=== PATIENT | male | born 1950 | race Caucasian/White ===

== ENCOUNTER 2016-11-21 05:13 | Inpatient (IN) | payer MEDICARE, BC ==
[2016-11-21] MEDS ORDERED: SODIUM CHLORIDE 0.9% 1,000 ML IV ONE (05:38)
[2016-11-21] MEDS ORDERED: ATENOLOL 25 MG TAB PO STA (05:38)
--- NOTE | 2016-11-21 05:42 | ED ---
Skin/Abscess/FB HPI - General Chief complaint: Skin/Abscess/Foreign Body Stated complaint: Infection Time Seen by Provider: 11/21/16 05:22 Source: patient, family Mode of arrival: ambulatory Limitations: no limitations - History of Present Illness Initial comments: This is a 66-year-old male with a history of leukemia in remission the last couple of months who presents emergency department for left-sided facial pain. The patient had a carcinoma removed from the left side of his face just anterior to his left ear. He states this was done 2 days ago. He states that he took the bandage off last night and it looked okay however had increasing pain and swelling throughout the day and is concerned about infection. He denies any fevers or chills. He does admit to little bit a cough. He also states he did not take his atenolol last night because he knew he was given come in to the emergency department. He denies any abdominal pain, nausea, vomiting, or diarrhea. No dysuria or hematuria. No other complaints. - Related Data Home Medications Medication Instructions Recorded Confirmed Atenolol 25 mg PO BID 06/20/14 11/21/16 OLANZapine [ZyPREXA] 5 mg PO HS 11/27/15 11/21/16 Multivitamins, Thera [Multivitamin] 1 tab PO DAILY 08/17/16 11/21/16 Allergies Allergy/AdvReac Type Severity Reaction Status Date / Time chocolate flavor AdvReac Swelling Verified 11/21/16 05:21 Review of Systems ROS Statement: Those systems with pertinent positive or pertinent negative responses have been documented in the HPI. ROS Other: All systems not noted in ROS Statement are negative. Past Medical History Past Medical History: Cancer, GERD/Reflux, Hyperlipidemia, Hypertension, Neurologic Disorder, Osteoarthritis (OA), Pneumonia Additional Past Medical History / Comment(s): sepsis 2ndary to [facility] infection/cellulitis and pancytopenia. STATES HX OF COMA AFTER HE WAS GIVEN LSD & STREET DRUGS YEARS AGO AND HAS BEEN UNDER DR CRUZ'S CARE SINCE., ,Hx. of R ear TINNITUS, TACHYCARDIA, ACUTE MYELOBLASTIC LEUKEMIA , MDS (MYELODYSPLASTIC SYNDROME) ,HAS BEEN RECEIVING CHEMOTHERAPY 4TH ROUND WAS 09-21-16 TO 09-25-16, chronic anemia, HX OF MULTIPLE TRANSFUSIONS (OVER 180), GOUT, SCOLIOSIS, BRUISES ON ARMS FROM IV'S AND BLOOD DRAWS., PNEUMONIA (MAY 2015). History of Any Multi-Drug Resistant Organisms: None Reported Past Surgical History: Back Surgery, Orthopedic Surgery, Tonsillectomy Additional Past Surgical History / Comment(s): 2000- metal rods in left forearm , , colonoscopy and EGD., MEDIPORT, [facility]MA.PICC LINE LT UPPER LINE Past Anesthesia/Blood Transfusion Reactions: No Reported Reaction, Blood Transfusion Reaction Additional Past Anesthesia/Blood Transfusion Reaction / Comment(s): OCTOBER 2014 -WAS GIVEN A- AND PT IS A+-PT HAD PETECHIAE AND RASH LIKE SORES, PT STATES SAME REACTION IN NOVEMBER 2015. Past Psychological History: Bipolar, Depression Additional Psychological History / Comment(s): He denies schizophrenia stating that behavior was a side effect of the respiradol he was taking. He states he has bipolar II. Smoking Status: Former smoker Past Alcohol Use History: None Reported Additional Past Alcohol Use History / Comment(s): STARTED SMOKING AT AGE 21 QUIT AGE 31 SMOKED LESS THAN 1 PPD. Past Drug Use History: None Reported - Past Family History Father Family Medical History: Cancer Additional Family Medical History / Comment(s): Leukemia, bladder cancer. Mother Family Medical History: Blood Disorder, Dementia Additional Family Medical History / Comment(s): ANEMIA General Exam - General Exam Comments Initial Comments: Constitutional: Awake alert Appears comfortable Head: Normocephalic atraumatic , there is a 4 cm incision to the left face just anterior to the left ear, there is mild erythema and inflammation surrounding this. No pearly and drainage. No fluctuance or induration. Eyes: no conjunctival injection No scleral icterus EOMI Neck: No JVD Supple Heart: Regular rate rhythm normal S1-S2 no murmurs Lungs: Clear to auscultation bilaterally No wheezing No rales Abdomen: Soft nondistended nontender Extremities: Non edematous DP pulses intact Radial pulses intact Neuro: A&Ox3 No focal neurologic deficits Psych: Appropriate mood and affect Limitations: no limitations Course Vital Signs 11/21/16 11/21/16 05:15 06:06 Temperature 97.6 F Pulse Rate 144 H 116 H Respiratory 20 16 Rate Blood Pressure 145/64 140/79 O2 Sat by Pulse 100 98 Oximetry - Reevaluation(s) Reevaluation #1: 11/21/16 05:42 EKG is showing sinus tachycardia with a rate of 118. No ST segment changes or T -wave inversions. QTC is 440. Other intervals are normal. No ectopy. Medical Decision Making - Medical Decision Making The patient is currently comfortable at bedside. Heart rate has improved to the low 100s. Blood work significant for anemia and thrombus cytopenia. The patient was typed and screened and will keep 2 units of PRBCs and also one pole of packed platelets. I treated his left facial wound with clindamycin. I spoke with Dr. Landers who accepts the admission. - Lab Data Result diagrams: 11/21/16 06:00 11/21/16 06:00 Lab Results 11/21/16 11/21/16 Range/Units 06:00 06:00 WBC 1.1 L* (3.8-10.6) k/uL RBC 1.82 L (4.30-5.90) m/uL Hgb 6.8 L* (13.0-17.5) gm/dL Hct 20.2 L (39.0-53.0) % MCV 111.5 H D (80.0-100.0) fL MCH 37.5 H (25.0-35.0) pg MCHC 33.6 (31.0-37.0) g/dL RDW 24.5 H (11.5-15.5) % Plt Count 8 L* (150-450) k/uL Sodium 141 (137-145) mmol/L Potassium 4.3 (3.5-5.1) mmol/L Chloride 104 (98-107) mmol/L Carbon Dioxide 27 (22-30) mmol/L Anion Gap 10 mmol/L BUN 14 (9-20) mg/dL Creatinine 0.63 L (0.66-1.25) mg/dL Est GFR (MDRD) Af Amer >60 (>60 ml/min/1.73 sqM) Est GFR (MDRD) Non-Af >60 (>60 ml/min/1.73 sqM) Glucose 143 H (74-99) mg/dL Calcium 9.3 (8.4-10.2) mg/dL Total Bilirubin 1.0 (0.2-1.3) mg/dL AST 35 (17-59) U/L ALT 65 (21-72) U/L Alkaline Phosphatase 64 (38-126) U/L Total Protein 6.3 (6.3-8.2) g/dL Albumin 3.4 L (3.5-5.0) g/dL Disposition Clinical Impression: Anemia, Thrombocytopenia, Wound infection Disposition: ADMITTED IP TO THIS HOSP Condition: Stable
[2016-11-21 06:24] LABS: Anisocytosis Marked; Aty Lym Flag Slight; CH 37.2; CHCM 33.5; HCT 20.2 % (39.0-53.0); HDW 3.34; Large Platelets Flag Moderate; MCH 37.5 pg (25.0-35.0); MCHC 33.6 g/dL (31.0-37.0); Macrocytosis Marked; RBC 1.82 m/uL (4.30-5.90); RDW 24.5 % (11.5-15.5); WBC (Perox) 1.11
[2016-11-21 06:27] LABS: HGB 6.8 gm/dL (13.0-17.5); WBC 1.1 k/uL (3.8-10.6)
[2016-11-21 06:28] LABS: MCV 111.5 fL (80.0-100.0)
[2016-11-21 06:31] LABS: ALT 65 U/L (21-72); AST 35 U/L (17-59); Alkaline Phosphatase 64 U/L (38-126); Anion Gap 10 mmol/L; Blood Urea Nitrogen 14 mg/dL (9-20); Calcium 9.3 mg/dL (8.4-10.2); Carbon Dioxide 27 mmol/L (22-30); Chloride 104 mmol/L (98-107); Glucose 143 mg/dL (74-99); Non-African American GFR(MDRD) >60 (>60 ml/min/1.73 sqM); Potassium 4.3 mmol/L (3.5-5.1); Sodium 141 mmol/L (137-145); Total Protein 6.3 g/dL (6.3-8.2)
[2016-11-21] MEDS ORDERED: CLINDAMYCIN 150 MG CAP PO STA (06:50)
[2016-11-21] MEDS ORDERED: NALOXONE 0.4 MG/ML 1 ML VIAL IV PRN (07:00)
--- NOTE | 2016-11-21 07:15 | XR ---
EXAMINATION TYPE: XR chest 2V DATE OF EXAM: 11/21/2016 7:00 AM COMPARISON: September 30, 2016 HISTORY: infection l. side of face-pt. states he has leukemia TECHNIQUE: Frontal and lateral views of the chest are obtained. FINDINGS: There is evidence of patchy opacity in the right suprahilar area in the right upper lobe of lung and may represent chronic scarring or atelectasis. Underlying infiltrate or endobronchial lesion cannot b e excluded.. Chronic interstitial lung changes are suggested bilaterally. No pneumothorax or pleural effusion is n oted. The cardiac silhouette size is within normal limits. Moderate degenerative changes are present in the thoracic spine.. IMPRESSION: 1. There is patchy scarring or atelectasis in the right upper lobe of lung. Underlying infiltrate can not be excluded. A CT scan of chest may be helpful to exclude endobronchial lesion if clinically karen cated. 2. Chronic lung changes.
[2016-11-21 07:43] LABS: Add Differential Manual Differential
[2016-11-21 07:46] LABS: Nucleated Red Blood Cells 0 /100 WBC (0-0); Polychromasia Present; Total Cells Counted 100
[2016-11-21 07:47] LABS: Ovalocytes Present
[2016-11-21 09:31] VITALS: BMI 28.1
--- NOTE | 2016-11-21 13:23 | P.HPIM ---
History of Present Illness Chief Complaint: Swelling of the neck This is 66-year-old gentleman with past medical history significant for underlying AML who presented to the emergency room with worsening swelling of the left neck and redness around recent incision in the left frontal area. Patient had the squamous cell carcinoma diagnosed recently. He was evaluated by dermatology and underwent excision with placement of sutures on Wednesday. Patient noted that there is some worsening redness around the area with swelling and some pain. He also noted a lump in his neck. He presented to the emergency room for further evaluation. He was noted to be pancytopenic with critically low platelet and hemoglobin levels. Patient was admitted to the hospital for further evaluation. He is doing fairly well other than the discomfort in his neck. He is transfusion dependent. He was apparently receiving chemotherapy at some point that was stopped. He is unclear what the plan of care for his AML that possibly planning for bone marrow transplant in the future. Review of Systems Review of system: 14 points review of systems were obtained and were negative except to what were mentioned in the HPI. Past Medical History Past Medical History: Cancer, GERD/Reflux, Hyperlipidemia, Hypertension, Neurologic Disorder, Osteoarthritis (OA), Pneumonia Additional Past Medical History / Comment(s): STATES HX OF COMA AFTER HE WAS GIVEN LSD & STREET DRUGS YEARS AGO AND HAS BEEN UNDER DR CRUZ'S CARE SINCE., , Hx. of R ear TINNITUS, TACHYCARDIA, ACUTE MYELOBLASTIC LEUKEMIA , MDS ( MYELODYSPLASTIC SYNDROME) ,HAS BEEN RECEIVING CHEMOTHERAPY 4TH ROUND WAS TO 09-25-16, chronic anemia, HX OF MULTIPLE TRANSFUSIONS (OVER 180), GOUT, SCOLIOSIS, BRUISES ON ARMS FROM IV'S AND BLOOD DRAWS., PNEUMONIA (MAY 2015). cancer removed on left side of face 11/18/2016 History of Any Multi-Drug Resistant Organisms: None Reported Past Surgical History: Back Surgery, Orthopedic Surgery, Tonsillectomy Additional Past Surgical History / Comment(s): 2000- metal rods in left forearm , , colonoscopy and EGD., MEDICUONG, [facility].PICC LINE LT UPPER LINE Past Anesthesia/Blood Transfusion Reactions: No Reported Reaction, Blood Transfusion Reaction Additional Past Anesthesia/Blood Transfusion Reaction / Comment(s): OCTOBER 2014 -WAS GIVEN A- AND PT IS A+-PT HAD PETECHIAE AND RASH LIKE SORES, PT STATES SAME REACTION IN NOVEMBER 2015. Past Psychological History: Bipolar, Depression Additional Psychological History / Comment(s): He denies schizophrenia stating that behavior was a side effect of the respiradol he was taking. He states he has bipolar II. Smoking Status: Former smoker Past Alcohol Use History: None Reported Additional Past Alcohol Use History / Comment(s): STARTED SMOKING AT AGE 21 QUIT AGE 31 SMOKED LESS THAN 1 PPD. Past Drug Use History: None Reported - Past Family History Father Family Medical History: Cancer Additional Family Medical History / Comment(s): Leukemia, bladder cancer. Mother Family Medical History: Blood Disorder, Dementia Additional Family Medical History / Comment(s): ANEMIA Medications and Allergies Home Medications Medication Instructions Recorded Confirmed Type Atenolol 25 mg PO BID 06/20/14 11/21/16 History OLANZapine [ZyPREXA] 5 mg PO HS 11/27/15 11/21/16 History Multivitamins, Thera [Multivitamin] 1 tab PO DAILY 08/17/16 11/21/16 History Dronabinol [Marinol] 2.5 mg PO HS 11/21/16 11/21/16 History Allergies Allergy/AdvReac Type Severity Reaction Status Date / Time chocolate flavor AdvReac Swelling Verified 11/21/16 11:22 Physical Exam Vitals: Vital Signs Temp Pulse Pulse Resp BP BP Pulse Ox 11/21/16 08:17 98 F 103 H 16 118/55 98 11/21/16 07:48 98.5 F 11/21/16 07:10 99 18 132/61 100 Intake and Output 11/20/16 11/21/16 11/21/16 22:59 06:59 14:59 Other: Weight 88.904 kg Patient Weight 11/22/16 06:59 Weight 88.904 kg General: The patient is awake and alert, in no distress, and does not appear acutely ill. Eye: extra-ocular movements are intact; there is normal conjunctiva bilaterally. There is approximately 2 cm linear incision sutured with erythema surrounding the sutures in the lateral aspect of the left eye toward the temporal area Neck: There is noted cervical lymphadenopathy in the anterior neck below the mandible on the left Cardiovascular: Normal S1-S2, no S3-S4, no murmurs. Respiratory: Lungs clear to auscultation bilaterally with no wheezes rhonchi or rales. Gastrointestinal: Abdomen is soft, nontender, nondistended, with no organomegaly. . Musculoskeletal: Normal ROM, no tenderness, There is no pedal edema. Neurological: There are no obvious motor or sensory deficits. Speech is normal. Skin: Skin is warm and dry and no rashes or lesions are noted. Results CBC & Chem 7: 11/21/16 06:00 11/21/16 06:00 Thrombosis Risk Factor Assmnt - Choose All That Apply Any of the Below Risk Factors Present?: Yes Other Risk Factors: Yes Each Risk Factor Represents 2 Points: Age 61-74 years Other congenital or acquired thrombophilia - If yes, enter type in comment: No Thrombosis Risk Factor Assessment Total Risk Factor Score: 2 Thrombosis Risk Factor Assessment Level: Low Risk Assessment and Plan Plan: 1. Cellulitis surrounding surgical excision sites 2. Left cervical lymphadenopathy 3. Underlying AML transfusion dependent 4. Pancytopenia secondary to #3 Patient would be started on IV cefazolin and monitor closely. 2 units of PRBC and 1 unit of platelets would be transfused. Consult for hematology requested given profound pancytopenia and patient being immunocompromised. We will monitor closely. Repeat lab work in the morning.
[2016-11-21] MEDS: ceFAZolin 1,000 MG in DEXTROSE/WATER 1 50ML.BAG IVPB SCH (17:06)
[2016-11-21] MEDS: OLANZapine 5 MG TAB PO SCH (21:14)
[2016-11-21] MEDS: DRONABINOL 2.5 MG CAP PO SCH (21:14)
[2016-11-21] MEDS: ATENOLOL 25 MG TAB PO SCH (21:15)
[2016-11-22] MEDS: ceFAZolin 1,000 MG in DEXTROSE/WATER 1 50ML.BAG IVPB SCH ×4 (01:12→23:23)
[2016-11-22 07:34] LABS: Anisocytosis Marked; CHCM 34.3; HCT 25.3 % (39.0-53.0); HDW 3.65; HGB 8.2 gm/dL (13.0-17.5); MCH 34.6 pg (25.0-35.0); MCHC 32.6 g/dL (31.0-37.0); Macrocytosis Marked; Mean Platelet Volume 9.9; Poikilocytosis Slight; RBC 2.38 m/uL (4.30-5.90); RDW 24.7 % (11.5-15.5); WBC (Perox) 1.49
[2016-11-22 07:38] LABS: WBC 1.4 k/uL (3.8-10.6)
[2016-11-22 07:39] LABS: MCV 106.4 fL (80.0-100.0)
[2016-11-22 08:00] LABS: Anion Gap 8 mmol/L; Blood Urea Nitrogen 13 mg/dL (9-20); Calcium 9.1 mg/dL (8.4-10.2); Carbon Dioxide 28 mmol/L (22-30); Chloride 106 mmol/L (98-107); Glucose 108 mg/dL (74-99); Non-African American GFR(MDRD) >60 (>60 ml/min/1.73 sqM); Potassium 4.6 mmol/L (3.5-5.1); Sodium 142 mmol/L (137-145)
[2016-11-22] MEDS: ATENOLOL 25 MG TAB PO SCH ×2 (08:54→19:35)
[2016-11-22 09:34] LABS: Add Differential Manual Differential
[2016-11-22 09:36] LABS: Nucleated Red Blood Cells 0 /100 WBC (0-0); Total Cells Counted 100
[2016-11-22 09:37] LABS: Ovalocytes Present; Polychromasia Present
--- NOTE | 2016-11-22 13:44 | P.PN ---
Subjective Patient is doing a lot better today. He said that he feels back to his normal self. Objective - Vital Signs Vital signs: Vital Signs Temp 97.1 F L 11/22/16 07:00 Pulse 79 11/22/16 08:00 Resp 20 11/22/16 08:00 BP 121/63 11/22/16 07:00 Pulse Ox 98 11/22/16 07:00 Intake & Output 11/21/16 11/22/16 11/22/16 18:59 06:59 18:59 Intake Total 0 2086 Balance 0 6 Weight 88.904 kg Intake: IV 670 ceFAZolin 1,000 mg In 50 Dextrose/Water 1 50ml.bag @ 100 mls/hr IVPB Q8HR [facility] Rx#:[id number] prbcs 620 Oral 500 Blood Product 0 916 Platelet Irr Pheresis 2 0 296 Acda Unit [id number] Rc Irr As1 Unit 310 [id number] Rc Irr As1 Unit 310 [id number] Other: # Voids 2 2 - Exam General: The patient is awake and alert, in no distress Eye: there is normal conjunctiva bilaterally. Neck: The neck is supple, there is no JVD. Cardiovascular: Normal S1-S2, no S3-S4, no murmurs. Respiratory: Lungs clear to auscultation bilaterally Gastrointestinal: Abdomen is soft, nontender Musculoskeletal: There is no pedal edema. Neurological:. Speech is normal. Skin: Skin is warm and dry - Labs CBC & Chem 7: 11/22/16 06:25 11/22/16 06:25 Labs: Abnormal Lab Results - Last 24 Hours (Table) 11/22/16 11/22/16 Range/Units 06:25 06:25 WBC 1.4 L* (3.8-10.6) k/uL RBC 2.38 L (4.30-5.90) m/uL Hgb 8.2 L (13.0-17.5) gm/dL Hct 25.3 L (39.0-53.0) % MCV 106.4 H D (80.0-100.0) fL RDW 24.7 H (11.5-15.5) % Plt Count 21 L* D (150-450) k/uL Neutrophils # (Manual) 0.5 L (1.3-7.7) k/uL Lymphocytes # (Manual) 0.7 L (1.0-4.8) k/uL Creatinine 0.62 L (0.66-1.25) mg/dL Glucose 108 H (74-99) mg/dL Assessment and Plan Plan: 1. Cellulitis surrounding surgical excision sites 2. Left cervical lymphadenopathy: Improved significantly compared to yesterday 3. Underlying AML transfusion dependent 4. Pancytopenia secondary to #3 status post 2 units of PRBC and 1 unit of platelet transfusion Patient is improving significantly. We will continue IV antibiotic for 1 more day. He was seen and evaluated by hematology and plan is to follow-up in the office. May change antibiotic to Keflex tomorrow We will monitor closely. Repeat lab work in the morning. Plan to discharge home tomorrow.
[2016-11-22] MEDS: DRONABINOL 2.5 MG CAP PO SCH (19:34)
[2016-11-22] MEDS: OLANZapine 5 MG TAB PO SCH (19:34)
[2016-11-23 07:11] LABS: Anisocytosis Moderate; Aty Lym Flag Slight; CH 35.6; CHCM 33.7; HCT 25.2 % (39.0-53.0); HDW 3.42; HGB 8.5 gm/dL (13.0-17.5); Large Platelets Flag Slight; MCH 35.8 pg (25.0-35.0); MCHC 33.6 g/dL (31.0-37.0); MCV 106.6 fL (80.0-100.0); Macrocytosis Marked; Mean Platelet Volume 10.2; Poikilocytosis Slight; RBC 2.36 m/uL (4.30-5.90); RDW 23.7 % (11.5-15.5); WBC (Perox) 1.26
[2016-11-23 07:16] LABS: WBC 1.1 k/uL (3.8-10.6)
[2016-11-23 07:24] LABS: Anion Gap 8 mmol/L; Blood Urea Nitrogen 16 mg/dL (9-20); Calcium 9.1 mg/dL (8.4-10.2); Carbon Dioxide 29 mmol/L (22-30); Chloride 104 mmol/L (98-107); Glucose 113 mg/dL (74-99); Non-African American GFR(MDRD) >60 (>60 ml/min/1.73 sqM); Sodium 141 mmol/L (137-145)
[2016-11-23 08:34] LABS: Add Differential Manual Differential
[2016-11-23 08:42] LABS: Nucleated Red Blood Cells 1 /100 WBC (0-0)
[2016-11-23 08:43] LABS: Total Cells Counted 100
[2016-11-23 08:44] LABS: Manual Review Performed
[2016-11-23] MEDS: ceFAZolin 1,000 MG in DEXTROSE/WATER 1 50ML.BAG IVPB SCH ×2 (09:27→17:32)
[2016-11-23] MEDS: ATENOLOL 25 MG TAB PO SCH ×2 (09:28→20:42)
[2016-11-23] MEDS ORDERED: IV VANCOMYCIN PER PHARMACY 1 EACH MISC MISCELLANE PRN (11:10)
--- NOTE | 2016-11-23 11:32 | P.PN ---
Subjective Patient with cellulitis of the left temporal incision area. Patient still having some redness and swelling. Pain is controlled. Denies any chest pain, shortness of breath, nausea or vomiting. Denies a bowel movement changes or urinary symptoms Objective - Vital Signs Vital signs: Vital Signs Temp 99.0 F 11/23/16 07:00 Pulse 80 11/23/16 08:00 Resp 16 11/23/16 08:00 BP 127/61 11/23/16 07:00 Pulse Ox 94 L 11/23/16 07:00 Intake & Output 11/22/16 11/23/16 11/23/16 18:59 06:59 18:59 Intake Total 1950 Balance 1950 Intake: IV 50 ceFAZolin 1,000 mg In 50 Dextrose/Water 1 50ml.bag @ 100 mls/hr IVPB Q8HR [facility] Rx#:[id number] Oral 1900 Other: # Voids 2 1 - Exam Head normocephalic. Left temporal incision site is swollen, firm, red. no drainage. there is swellling on the left neck Neck supple Lungs clear to auscultation bilaterally no wheezing or crackles Heart regular rate and rhythm S1-S2, no rub or gallop Abdomen is soft nontender nondistended positive bowel sounds no hepatosplenomegaly Extremities no edema Neuro alert and orientated to 3 - Labs CBC & Chem 7: 11/23/16 06:30 11/23/16 06:30 Labs: Abnormal Lab Results - Last 24 Hours (Table) 11/23/16 11/23/16 Range/Units 06:30 06:30 WBC 1.1 L* (3.8-10.6) k/uL RBC 2.36 L (4.30-5.90) m/uL Hgb 8.5 L (13.0-17.5) gm/dL Hct 25.2 L (39.0-53.0) % MCV 106.6 H (80.0-100.0) fL MCH 35.8 H (25.0-35.0) pg RDW 23.7 H (11.5-15.5) % Plt Count 17 L* (150-450) k/uL Neutrophils # (Manual) 0.4 L (1.3-7.7) k/uL Lymphocytes # (Manual) 0.6 L (1.0-4.8) k/uL Nucleated RBCs 1 H (0-0) /100 WBC Creatinine 0.62 L (0.66-1.25) mg/dL Glucose 113 H (74-99) mg/dL Assessment and Plan Plan: 1. Cellulitis surrounding surgical excision site on the left temporal area. No Improvement. Consult infectious disease. Add IV vancomycin. Blood culture remains negative 2. Left cervical lymphadenopathy: Still present. Continue to monitor 3. Underlying AML transfusion dependent 4. Pancytopenia secondary to #3 status post 2 units of PRBC and 1 unit of platelet transfusion 5. Anemia of chronic disease secondary to AML. Patient did require blood transfusion. 6. 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 Soto
[2016-11-23] MEDS ORDERED: VANCOMYCIN 1,500 MG in SODIUM CHLORIDE 0.9% 250 ML IVPB ONE (12:00)
--- NOTE | 2016-11-23 18:42 | P.CONS ---
History of Present Illness - Reason for Consult Consult date: 11/23/16 - Chief Complaint Pain and swelling to the left side of the face - History of Present Illness Pleasant 66-year-old male well known to the ID service because of his history of myelodysplastic syndrome with excessive blasts diagnosed in 2013. Was evaluated both [facility] is worse locally. Initially refused treatment and was transfusion dependent. However in 2016 he went under the care of Dr. Garcia and agree to treatment with Decagon. The patient relates that he has completed his course of therapy and was doing well. He is still requiring some red cell transfusions. But had some more recent stability. He developed a lesion on the left side of his face. It was positive for squamous cell carcinoma and underwent a excisional removal of the mass. There were started developed increasing amounts of swelling to the site. Redness that traversed around his ear and into his neck with some tender swelling. Because of this he presented to the emergency center with a cellulitis to the site. Antibiotic therapy was begun. Infectious disease consultation was requested. It is on the patient relates he is feeling slightly better. He is not having high-grade fever chills or rigors or sweats. He did receive platelets and 2 packed red cells at admission. He does feel stronger. He relates is actually feeling somewhat better at this time and feels ageless. Review of Systems HEENT:Denies headache or acute visual change. Denies sinus or mouth discomforts. Denies neck stiffness or pain. Denies significant oral cavity pain. Denies difficulty on swallowing. As per the HPI does have the pain onto the left rastafari area that goes of the posterior auricular region Lungs: Denies significant shortness of breath, cough, sputum production, or hemoptysis. Cardiovascular: Denies significant shortness of breath, chest pain, chest wall pain, orthopnea, dyspnea on exertion, syncope Gastrointestinal:Denies nausea, vomiting, diarrhea, constipation, hematemesis, melena, hematochezia. No no significant change of bowel habit noticed. Musculoskeletal: denies significant myalgias or arthralgias. No new joint swelling. Denies new back pain. Skin: Denies new rash or lesions. No new ulcers or wounds are related.. Neuro: Denies headache or visual change. Denies any new onset weakness or difficulty with ambulation. Denies falls or seizures. Psychiatric:Denies anxiety or depression. Endocrine: Chronic significant fatigue improves his transfusion has lost 50 pounds in the last year. Past Medical History Past Medical History: Cancer, GERD/Reflux, Hyperlipidemia, Hypertension, Neurologic Disorder, Osteoarthritis (OA), Pneumonia Additional Past Medical History / Comment(s): STATES HX OF COMA AFTER HE WAS GIVEN LSD & STREET DRUGS YEARS AGO AND HAS BEEN UNDER DR CRUZ'S CARE SINCE., , Hx. of R ear TINNITUS, TACHYCARDIA, ACUTE MYELOBLASTIC LEUKEMIA , MDS ( MYELODYSPLASTIC SYNDROME) ,HAS BEEN RECEIVING CHEMOTHERAPY 4TH ROUND WAS TO 09-25-16, chronic anemia, HX OF MULTIPLE TRANSFUSIONS (OVER 180), GOUT, SCOLIOSIS, BRUISES ON ARMS FROM IV'S AND BLOOD DRAWS., PNEUMONIA (MAY 2015). cancer removed on left side of face 11/18/2016 History of Any Multi-Drug Resistant Organisms: None Reported Past Surgical History: Back Surgery, Orthopedic Surgery, Tonsillectomy Additional Past Surgical History / Comment(s): 2000- metal rods in left forearm , , colonoscopy and EGD., MEDIPORT, BMA.PICC LINE LT UPPER LINE Past Anesthesia/Blood Transfusion Reactions: No Reported Reaction, Blood Transfusion Reaction Additional Past Anesthesia/Blood Transfusion Reaction / Comm: OCTOBER 2014-WAS GIVEN A- AND PT IS A+-PT HAD PETECHIAE AND RASH LIKE SORES, PT STATES SAME REACTION IN NOVEMBER 2015. Past Psychological History: Bipolar, Depression Additional Psychological History / Comment(s): He denies schizophrenia stating that behavior was a side effect of the respiradol he was taking. He states he has bipolar II. Smoking Status: Former smoker Past Alcohol Use History: None Reported Additional Past Alcohol Use History / Comment(s): STARTED SMOKING AT AGE 21 QUIT AGE 31 SMOKED LESS THAN 1 PPD. Past Drug Use History: None Reported - Past Family History Father Family Medical History: Cancer Additional Family Medical History / Comment(s): Leukemia, bladder cancer. Mother Family Medical History: Blood Disorder, Dementia Additional Family Medical History / Comment(s): ANEMIA Medications and Allergies Home Medications and Allergies Comment(s): Current Medications Atenolol (Tenormin) 25 mg PO BID [facility] Last Admin: 11/23/16 09:28 Dose: 25 mg Dronabinol (Marinol) 2.5 mg PO HS [facility] Last Admin: 11/22/16 19:34 Dose: 2.5 mg Cefazolin Sodium/Dextrose 1, (000 mg/ IV Solution) 50 mls @ 100 mls/hr IVPB Q8HR [facility] Last Admin: 11/23/16 17:32 Dose: 100 mls/hr Vancomycin HCl 1,500 mg/ (Sodium Chloride) 250 mls @ 125 mls/hr IVPB BID [facility] Naloxone HCl (Narcan) 0.2 mg IV Q2M PRN PRN Reason: Opioid Reversal Olanzapine (Zyprexa) 5 mg PO [facility] Last Admin: 11/22/16 19:34 Dose: 5 mg Home Medications Medication Instructions Recorded Confirmed Type Atenolol 25 mg PO BID 06/20/14 11/21/16 History OLANZapine [ZyPREXA] 5 mg PO HS 11/27/15 11/21/16 History Multivitamins, Thera [Multivitamin] 1 tab PO DAILY 08/17/16 11/21/16 History Dronabinol [Marinol] 2.5 mg PO HS 11/21/16 11/21/16 History Allergies Allergy/AdvReac Type Severity Reaction Status Date / Time chocolate flavor AdvReac Swelling Verified 11/21/16 11:22 Physical Exam Vitals: Vital Signs Temp Pulse Resp BP Pulse Ox 11/23/16 16:00 83 16 11/23/16 14:30 98.2 F 83 16 129/58 92 L 11/23/16 08:00 80 16 11/23/16 07:00 99.0 F 80 16 127/61 94 L 11/22/16 23:15 16 11/22/16 22:09 98.6 F 78 16 118/59 96 Intake and Output 11/23/16 11/23/16 11/23/16 06:59 14:59 22:59 Intake Total 750 Balance 750 Intake: IV 50 ceFAZolin 1,000 mg In 50 Dextrose/Water 1 50ml.bag @ 100 mls/hr IVPB Q8HR [facility] Rx#:[id number] Oral 700 Other: # Voids 1 Weight 88.904 kg Patient Weight 11/24/16 06:59 Weight 88.904 kg HEENT: Anicteric conjunctiva are pink and moist nasal mucosa grossly intact without significant lesions, there is no thrush. The left temporal area shows evidence of the recent biopsy site. Suture line is intact. There is some generalized swelling and mild tenderness of the area. There is some surrounding erythema. There is evidence of some posterior auricular adenopathy that is mildly tender. There is not a significant amount of erythema and this area. Neck: The neck is supple without significant thyromegaly. Lungs: Good bilateral air entry without significant crackles or wheezing. There is no significant bronchial sounds. There is no egophony or dullness. Heart: Regular rate and rhythm with an audible S1-S2, no S3 no S4. There is no significant murmur click or rub, PMI was nondisplaced. Abdomen: Positive bowel sounds soft and nontender without palpable masses or organomegaly. There was no guarding or rebound. Extremities: The upper extremities have excellent pulses they are symmetric, no significant petechiae or telangiectasia. No splinter hemorrhages were noted. The lower extremities are free from significant edema. The peripheral pulses were 2+ and symmetric. Neuro: Awake alert oriented to person place and time. There are no acute new gross focal sensory motor deficits. Results CBC & Chem 7: 11/23/16 06:30 11/23/16 06:30 Labs: Abnormal Lab Results - Last 24 Hours (Table) 11/23/16 11/23/16 Range/Units 06:30 06:30 WBC 1.1 L* (3.8-10.6) k/uL RBC 2.36 L (4.30-5.90) m/uL Hgb 8.5 L (13.0-17.5) gm/dL Hct 25.2 L (39.0-53.0) % MCV 106.6 H (80.0-100.0) fL MCH 35.8 H (25.0-35.0) pg RDW 23.7 H (11.5-15.5) % Plt Count 17 L* (150-450) k/uL Neutrophils # (Manual) 0.4 L (1.3-7.7) k/uL Lymphocytes # (Manual) 0.6 L (1.0-4.8) k/uL Nucleated RBCs 1 H (0-0) /100 WBC Creatinine 0.62 L (0.66-1.25) mg/dL Glucose 113 H (74-99) mg/dL Laboratory Results WBC 1.1 k/uL (3.8-10.6) L* 11/23/16 06:30 RBC 2.36 m/uL (4.30-5.90) L 11/23/16 06:30 Hgb 8.5 gm/dL (13.0-17.5) L 11/23/16 06:30 Hct 25.2 % (39.0-53.0) L 11/23/16 06:30 MCV 106.6 fL (80.0-100.0) H 11/23/16 06:30 MCH 35.8 pg (25.0-35.0) H 11/23/16 06:30 MCHC 33.6 g/dL (31.0-37.0) 11/23/16 06:30 RDW 23.7 % (11.5-15.5) H 11/23/16 06:30 Plt Count 17 k/uL (150-450) L* 11/23/16 06:30 Neutrophils % (Manual) 36.0 % 11/23/16 06:30 Band Neutrophils % 1.0 % 11/23/16 06:30 Lymphocytes % (Manual) 55.0 % 11/23/16 06:30 Monocytes % (Manual) 1.0 % 11/23/16 06:30 Eosinophils % (Manual) 7.0 % 11/23/16 06:30 Neutrophils # (Manual) 0.4 k/uL (1.3-7.7) L 11/23/16 06:30 Lymphocytes # (Manual) 0.6 k/uL (1.0-4.8) L 11/23/16 06:30 Monocytes # (Manual) 0.0 k/uL (0-1.0) 11/23/16 06:30 Eosinophils # (Manual) 0.1 k/uL (0-0.7) 11/23/16 06:30 Nucleated RBCs 1 /100 WBC (0-0) H 11/23/16 06:30 Manual Slide Review Performed 11/23/16 06:30 Polychromasia Present 11/22/16 06:25 Poikilocytosis Slight 11/23/16 06:30 Poikilocytosis (manual Present 11/22/16 06:25 Anisocytosis Moderate 11/23/16 06:30 Macrocytosis Marked 11/23/16 06:30 Ovalocytes Present 11/22/16 06:25 Sodium 141 mmol/L (137-145) 11/23/16 06:30 Potassium 4.0 mmol/L (3.5-5.1) 11/23/16 06:30 Chloride 104 mmol/L (98-107) 11/23/16 06:30 Carbon Dioxide 29 mmol/L (22-30) 11/23/16 06:30 Anion Gap 8 mmol/L 11/23/16 06:30 BUN 16 mg/dL (9-20) 11/23/16 06:30 Creatinine 0.62 mg/dL (0.66-1.25) L 11/23/16 06:30 Est GFR (MDRD) Af Amer >60 (>60 ml/min/1.73 sqM) 11/23/16 06:30 Est GFR (MDRD) Non-Af >60 (>60 ml/min/1.73 sqM) 11/23/16 06:30 Glucose 113 mg/dL (74-99) H 11/23/16 06:30 Plasma Lactic Acid Jesus 1.3 mmol/L (0.7-2.0) 11/21/16 06:00 Calcium 9.1 mg/dL (8.4-10.2) 11/23/16 06:30 Total Bilirubin 1.0 mg/dL (0.2-1.3) 11/21/16 06:00 AST 35 U/L (17-59) 11/21/16 06:00 ALT 65 U/L (21-72) 11/21/16 06:00 Alkaline Phosphatase 64 U/L (38-126) 11/21/16 06:00 Total Protein 6.3 g/dL (6.3-8.2) 11/21/16 06:00 Albumin 3.4 g/dL (3.5-5.0) L 11/21/16 06:00 Blood Type A Positive 11/21/16 06:30 Blood Type Recheck No 11/21/16 06:30 Antibody Screen NEGATIVE 11/21/16 06:30 Crossmatch See Detail 11/21/16 06:30 Transfuse Platelets 11/21/2016 11/21/16 06:30 Spec Expiration Date 11/24/2016 - 1516 11/21/16 06:30 Microbiology 11/21/16 06:30 Blood Blood Culture - Preliminary No Growth after 48 hours Assessment and Plan (1) Myelodysplastic disease Status: Acute (2) Anemia Status: Acute (3) Squamous cell carcinoma of face Status: Acute (4) Cellulitis of rastafari Narrative/Plan: 66-year-old male who is status post his treatment for his myelodysplastic syndrome with excessive blasts was remained somewhat transfusion dependent as of late. The may of been having some improvements especially since he wasn't requiring some a platelet transfusions. However developed evidence of a mass in the left temporal area. Biopsy and excision reveal evidence of squamous cell cancer. Has now developed a cellulitis that area. He is not responding well to the current antibiotic therapy of cefazolin and vancomycin. So be continued for now until we have some further cultures. Prior day reveals evidence of some contaminant blood cultures but no strong history of MRSA or other resistant gram-positive pathogens. Likely as he is improving will be able to utilize a course of oral antibiotics to finish his course of therapy at discharge. Local wound care with mupirocin will be requested Pain control appears to be adequate Is being followed by hematology for his transfusion needs. Albumin is low, protein supplements indicated if okayed by hematology. Would also like a multivitamin. Status: Acute
[2016-11-23] MEDS: OLANZapine 5 MG TAB PO SCH (20:42)
[2016-11-23] MEDS: DRONABINOL 2.5 MG CAP PO SCH (20:42)
[2016-11-23] MEDS: VANCOMYCIN 1,500 MG in SODIUM CHLORIDE 0.9% 250 ML IVPB SCH (22:39)
[2016-11-24] MEDS: ceFAZolin 1,000 MG in DEXTROSE/WATER 1 50ML.BAG IVPB SCH ×3 (00:41→15:27)
[2016-11-24] MEDS: ATENOLOL 25 MG TAB PO SCH ×2 (07:37→21:48)
[2016-11-24 09:08] LABS: Anisocytosis Moderate; Basophils % (A) 0 %; CH 35.4; CHCM 33.4; Eosinophils # (A) 0.1 k/uL (0-0.7); Eosinophils % (A) 6 %; HCT 25.8 % (39.0-53.0); HDW 3.28; HGB 8.6 gm/dL (13.0-17.5); Luc # (Auto) 0.05; Luc % (Auto) 4; Lymphocytes # (A) 0.5 k/uL (1.0-4.8); Lymphocytes % (A) 41 %; MCH 35.4 pg (25.0-35.0); MCHC 33.1 g/dL (31.0-37.0); MCV 106.7 fL (80.0-100.0); Macrocytosis Marked; Mean Platelet Volume 9.9; Monocytes % (A) 3 %; Neutrophils # (A) 0.6 k/uL (1.3-7.7); Neutrophils % (A) 46 %; RBC 2.42 m/uL (4.30-5.90); RDW 23.1 % (11.5-15.5); WBC (Perox) 1.23
[2016-11-24 09:09] LABS: WBC 1.2 k/uL (3.8-10.6)
[2016-11-24 09:17] LABS: Anion Gap 8 mmol/L; Blood Urea Nitrogen 13 mg/dL (9-20); Calcium 9.1 mg/dL (8.4-10.2); Carbon Dioxide 29 mmol/L (22-30); Chloride 104 mmol/L (98-107); Glucose 111 mg/dL (74-99); Non-African American GFR(MDRD) >60 (>60 ml/min/1.73 sqM); Potassium 4.4 mmol/L (3.5-5.1); Sodium 141 mmol/L (137-145)
--- NOTE | 2016-11-24 09:21 | P.PN ---
Subjective Principal diagnosis: Facial cellulitis Patient is a 66-year-old male with multiple medical problems who recently had excision of a malignant lesion of his left temporal area, subsequence either area was swollen and red with evidence of cellulitis he was admitted to the hospital and started on IV antibiotic Kefzol and vancomycin infectious disease consultation was requested. Patient has a known history of myelodysplastic disorder followed by hematology patient received chemotherapy recently, he requires red blood cell transfusion and occasionally platelet transfusions. Objective - Vital Signs Vital signs: Vital Signs Temp 98 F 11/24/16 07:00 Pulse 72 11/24/16 07:46 Resp 16 11/24/16 07:46 BP 121/56 11/24/16 07:00 Pulse Ox 97 11/24/16 07:00 Intake & Output 11/23/16 11/24/16 11/24/16 18:59 06:59 18:59 Intake Total 1120 Balance 1120 Weight 88.904 kg Intake: IV 300 Vancomycin 1,500 mg In 250 Sodium Chloride 0.9% 250 ml @ 125 mls/hr IVPB BID [facility] Rx#:[id number] ceFAZolin 1,000 mg In 50 Dextrose/Water 1 50ml.bag @ 100 mls/hr IVPB Q8HR [facility] Rx#:[id number] Oral 820 Other: # Voids 2 - Exam In general patient is alert and oriented 3 in no apparent distress HEENT head normocephalic and atraumatic, there is an area of erythema and swelling and induration in the left temporal area patient still has sutures in the area Neck is supple no JVD no goiter no lymphadenopathy Chest is clear to auscultation no crackles no wheezing Cardiac exam reveals regular heart sounds no gallops no murmurs Abdomen is soft nontender no organomegaly Extremity exam reveals no edema no cyanosis or clubbing - Labs CBC & Chem 7: 11/24/16 08:39 11/23/16 06:30 Labs: Abnormal Lab Results - Last 24 Hours (Table) 11/23/16 11/24/16 Range/Units 06:30 08:39 WBC 1.2 L* (3.8-10.6) k/uL RBC 2.42 L (4.30-5.90) m/uL Hgb 8.6 L (13.0-17.5) gm/dL Hct 25.8 L (39.0-53.0) % MCV 106.7 H (80.0-100.0) fL MCH 35.4 H (25.0-35.0) pg RDW 23.1 H (11.5-15.5) % Plt Count 12 L* (150-450) k/uL Neutrophils # 0.6 L (1.3-7.7) k/uL Lymphocytes # 0.5 L (1.0-4.8) k/uL Prealbumin 13 L (18-36) mg/dL Assessment and Plan Plan: 1. Cellulitis surrounding surgical excision site on the left temporal area. Minimal improvement since yesterday. Consult infectious disease. Add IV vancomycin. Blood culture remains negative. 2. Left cervical lymphadenopathy: Still present. Continue to monitor 3. Underlying AML transfusion dependent 4. Pancytopenia secondary to AML status post 2 units of PRBC and 1 unit of platelet transfusion 5. Anemia of chronic disease secondary to AML. Patient did require blood transfusion this admission. 6. 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 Soto
[2016-11-24] MEDS: VANCOMYCIN 1,500 MG in SODIUM CHLORIDE 0.9% 250 ML IVPB SCH ×2 (09:58→21:47)
[2016-11-24] MEDS: MULTIVITAMINS, THERA 1 EACH TAB PO SCH (15:27)
--- NOTE | 2016-11-24 19:43 | P.PN ---
Subjective Principal diagnosis: Pain and swelling to the left side of the face Pleasant 66-year-old male well known to the ID service because of his history of myelodysplastic syndrome with excessive blasts diagnosed in 2013. Was evaluated both [facility] is worse locally. Initially refused treatment and was transfusion dependent. However in 2015 he went under the care of Dr. Garcia and agree to treatment with Decagon. The patient relates that he has completed his course of therapy and was doing well. He is still requiring some red cell transfusions. But had some more recent stability. He developed a lesion on the left side of his face. It was positive for squamous cell carcinoma and underwent a excisional removal of the mass. There were started developed increasing amounts of swelling to the site. Redness that traversed around his ear and into his neck with some tender swelling. Because of this he presented to the emergency center with a cellulitis to the site. Antibiotic therapy was begun. Infectious disease consultation was requested. It is on the patient relates he is feeling slightly better. He is not having high-grade fever chills or rigors or sweats. He did receive platelets and 2 packed red cells at admission. He does feel stronger. Feeling better today Objective - Vital Signs Vital signs: Vital Signs Temp 98.5 F 11/24/16 15:00 Pulse 85 11/24/16 16:00 Resp 16 11/24/16 16:00 BP 99/57 11/24/16 15:00 Pulse Ox 98 11/24/16 15:00 Intake & Output 11/24/16 11/24/16 11/25/16 06:59 18:59 06:59 Intake Total 1120 Output Total 400 Balance 1120 -400 Intake: IV 300 Vancomycin 1,500 mg In 250 Sodium Chloride 0.9% 250 ml @ 125 mls/hr IVPB BID [facility] Rx#:[id number] ceFAZolin 1,000 mg In 50 Dextrose/Water 1 50ml.bag @ 100 mls/hr IVPB Q8HR [facility] Rx#:[id number] Oral 820 Output: Urine 400 Other: # Voids 2 - Exam HEENT: Anicteric conjunctiva are pink and moist nasal mucosa grossly intact without significant lesions, there is no thrush. The left temporal area shows evidence of the recent biopsy site. Suture line is intact. There is some generalized swelling and mild tenderness of the area. There is some surrounding erythema. There is evidence of some posterior auricular adenopathy that is mildly tender. There is not a significant amount of erythema and this area. Neck: The neck is supple without significant thyromegaly. Lungs: Good bilateral air entry without significant crackles or wheezing. There is no significant bronchial sounds. There is no egophony or dullness. Heart: Regular rate and rhythm with an audible S1-S2, no S3 no S4. There is no significant murmur click or rub, PMI was nondisplaced. Abdomen: Positive bowel sounds soft and nontender without palpable masses or organomegaly. There was no guarding or rebound. Extremities: The upper extremities have excellent pulses they are symmetric, no significant petechiae or telangiectasia. No splinter hemorrhages were noted. The lower extremities are free from significant edema. The peripheral pulses were 2+ and symmetric. Neuro: Awake alert oriented to person place and time. There are no acute new gross focal sensory motor deficits. - Labs CBC & Chem 7: 11/24/16 08:39 11/24/16 08:39 Labs: Abnormal Lab Results - Last 24 Hours (Table) 11/24/16 11/24/16 Range/Units 08:39 08:39 WBC 1.2 L* (3.8-10.6) k/uL RBC 2.42 L (4.30-5.90) m/uL Hgb 8.6 L (13.0-17.5) gm/dL Hct 25.8 L (39.0-53.0) % MCV 106.7 H (80.0-100.0) fL MCH 35.4 H (25.0-35.0) pg RDW 23.1 H (11.5-15.5) % Plt Count 12 L* (150-450) k/uL Neutrophils # 0.6 L (1.3-7.7) k/uL Lymphocytes # 0.5 L (1.0-4.8) k/uL Creatinine 0.59 L (0.66-1.25) mg/dL Glucose 111 H (74-99) mg/dL Laboratory Results WBC 1.2 k/uL (3.8-10.6) L* 11/24/16 08:39 RBC 2.42 m/uL (4.30-5.90) L 11/24/16 08:39 Hgb 8.6 gm/dL (13.0-17.5) L 11/24/16 08:39 Hct 25.8 % (39.0-53.0) L 11/24/16 08:39 MCV 106.7 fL (80.0-100.0) H 11/24/16 08:39 MCH 35.4 pg (25.0-35.0) H 11/24/16 08:39 MCHC 33.1 g/dL (31.0-37.0) 11/24/16 08:39 RDW 23.1 % (11.5-15.5) H 11/24/16 08:39 Plt Count 12 k/uL (150-450) L* 11/24/16 08:39 Neutrophils % 46 % 11/24/16 08:39 Neutrophils % (Manual) 36.0 % 11/23/16 06:30 Band Neutrophils % 1.0 % 11/23/16 06:30 Lymphocytes % 41 % 11/24/16 08:39 Lymphocytes % (Manual) 55.0 % 11/23/16 06:30 Monocytes % 3 % 11/24/16 08:39 Monocytes % (Manual) 1.0 % 11/23/16 06:30 Eosinophils % 6 % 11/24/16 08:39 Eosinophils % (Manual) 7.0 % 11/23/16 06:30 Basophils % 0 % 11/24/16 08:39 Neutrophils # 0.6 k/uL (1.3-7.7) L 11/24/16 08:39 Neutrophils # (Manual) 0.4 k/uL (1.3-7.7) L 11/23/16 06:30 Lymphocytes # 0.5 k/uL (1.0-4.8) L 11/24/16 08:39 Lymphocytes # (Manual) 0.6 k/uL (1.0-4.8) L 11/23/16 06:30 Monocytes # 0.0 k/uL (0-1.0) 11/24/16 08:39 Monocytes # (Manual) 0.0 k/uL (0-1.0) 11/23/16 06:30 Eosinophils # 0.1 k/uL (0-0.7) 11/24/16 08:39 Eosinophils # (Manual) 0.1 k/uL (0-0.7) 11/23/16 06:30 Basophils # 0.0 k/uL (0-0.2) 11/24/16 08:39 Nucleated RBCs 1 /100 WBC (0-0) H 11/23/16 06:30 Manual Slide Review Performed 11/23/16 06:30 Polychromasia Present 11/22/16 06:25 Poikilocytosis Slight 11/23/16 06:30 Poikilocytosis (manual Present 11/22/16 06:25 Anisocytosis Moderate 11/24/16 08:39 Macrocytosis Marked 11/24/16 08:39 Ovalocytes Present 11/22/16 06:25 Sodium 141 mmol/L (137-145) 11/24/16 08:39 Potassium 4.4 mmol/L (3.5-5.1) 11/24/16 08:39 Chloride 104 mmol/L (98-107) 11/24/16 08:39 Carbon Dioxide 29 mmol/L (22-30) 11/24/16 08:39 Anion Gap 8 mmol/L 11/24/16 08:39 BUN 13 mg/dL (9-20) 11/24/16 08:39 Creatinine 0.59 mg/dL (0.66-1.25) L 11/24/16 08:39 Est GFR (MDRD) Af Amer >60 (>60 ml/min/1.73 sqM) 11/24/16 08:39 Est GFR (MDRD) Non-Af >60 (>60 ml/min/1.73 sqM) 11/24/16 08:39 Glucose 111 mg/dL (74-99) H 11/24/16 08:39 Plasma Lactic Acid Jesus 1.3 mmol/L (0.7-2.0) 11/21/16 06:00 Calcium 9.1 mg/dL (8.4-10.2) 11/24/16 08:39 Total Bilirubin 1.0 mg/dL (0.2-1.3) 11/21/16 06:00 AST 35 U/L (17-59) 11/21/16 06:00 ALT 65 U/L (21-72) 11/21/16 06:00 Alkaline Phosphatase 64 U/L (38-126) 11/21/16 06:00 Total Protein 6.3 g/dL (6.3-8.2) 11/21/16 06:00 Albumin 3.4 g/dL (3.5-5.0) L 11/21/16 06:00 Prealbumin 13 mg/dL (18-36) L 11/23/16 06:30 Blood Type A Positive 11/21/16 06:30 Blood Type Recheck No 11/21/16 06:30 Antibody Screen NEGATIVE 11/21/16 06:30 Crossmatch See Detail 11/21/16 06:30 Transfuse Platelets 11/21/2016 11/21/16 06:30 Spec Expiration Date 11/24/2016 - 2339 11/21/16 06:30 Microbiology 11/21/16 06:30 Blood Blood Culture - Preliminary No Growth after 72 hours Assessment and Plan (1) Myelodysplastic disease Status: Acute (2) Anemia Status: Acute (3) Squamous cell carcinoma of face Status: Acute (4) Cellulitis of judaism Narrative/Plan: 66-year-old male who is status post his treatment for his myelodysplastic syndrome with excessive blasts , AML has remained somewhat transfusion dependent as of late. The may of been having some improvements especially since he wasn't requiring some a platelet transfusions. However developed evidence of a mass in the left temporal area. Biopsy and excision reveal evidence of squamous cell cancer. Has now developed a cellulitis that area. He is not responding well to the current antibiotic therapy of cefazolin and vancomycin was added.. So be continued for now until we have some further cultures. Prior day reveals evidence of some contaminant blood cultures but no strong history of MRSA or other resistant gram-positive pathogens. Likely as he is improving will be able to utilize a course of oral antibiotics to finish his course of therapy at discharge. Local wound care with mupirocin will be requested Pain control appears to be adequate Is being followed by hematology for his transfusion needs. Albumin is low, protein supplements and multivitamin. Status: Acute
[2016-11-24] MEDS: DRONABINOL 2.5 MG CAP PO SCH (21:47)
[2016-11-24] MEDS: OLANZapine 5 MG TAB PO SCH (21:48)
[2016-11-25] MEDS: ceFAZolin 1,000 MG in DEXTROSE/WATER 1 50ML.BAG IVPB SCH ×3 (00:09→15:26)
[2016-11-25] MEDS ORDERED: VANCOMYCIN TROUGH DUE 1 EACH MISC MISCELLANE ONE (08:00)
[2016-11-25] MEDS: VANCOMYCIN 1,500 MG in SODIUM CHLORIDE 0.9% 250 ML IVPB SCH ×2 (08:18→21:44)
[2016-11-25] MEDS: ATENOLOL 25 MG TAB PO SCH ×2 (08:18→21:44)
[2016-11-25 08:19] LABS: Anion Gap 7 mmol/L; Blood Urea Nitrogen 14 mg/dL (9-20); Calcium 8.8 mg/dL (8.4-10.2); Carbon Dioxide 29 mmol/L (22-30); Chloride 105 mmol/L (98-107); Glucose 126 mg/dL (74-99); Non-African American GFR(MDRD) >60 (>60 ml/min/1.73 sqM); Potassium 4.1 mmol/L (3.5-5.1); Sodium 141 mmol/L (137-145)
[2016-11-25 08:59] LABS: Anisocytosis Moderate; Aty Lym Flag Slight; CH 35.3; CHCM 33.1; HCT 23.5 % (39.0-53.0); HDW 3.22; HGB 7.9 gm/dL (13.0-17.5); MCH 36.1 pg (25.0-35.0); MCHC 33.6 g/dL (31.0-37.0); MCV 107.5 fL (80.0-100.0); Macrocytosis Marked; Mean Platelet Volume 9.6; RBC 2.19 m/uL (4.30-5.90); RDW 22.8 % (11.5-15.5); WBC (Perox) 1.06
[2016-11-25 09:18] LABS: WBC 0.9 k/uL (3.8-10.6)
[2016-11-25 11:24] LABS: Add Differential Manual Differential; Manual Review Performed
[2016-11-25] MEDS: MULTIVITAMINS, THERA 1 EACH TAB PO SCH (11:31)
--- NOTE | 2016-11-25 13:39 | P.PN ---
Subjective Principal diagnosis: Facial cellulitis Patient is a 66-year-old male with multiple medical problems who recently had excision of a malignant lesion of his left temporal area, subsequence either area was swollen and red with evidence of cellulitis he was admitted to the hospital and started on IV antibiotic Kefzol and vancomycin infectious disease consultation was requested. Patient has a known history of myelodysplastic disorder followed by hematology patient received chemotherapy recently, he requires red blood cell transfusion and occasionally platelet transfusions. Objective - Vital Signs Vital signs: Vital Signs Temp 97.6 F 11/25/16 07:00 Pulse 79 11/25/16 07:00 Resp 16 11/25/16 07:00 BP 116/56 11/25/16 07:00 Pulse Ox 97 11/25/16 07:00 Intake & Output 11/24/16 11/25/16 11/25/16 18:59 06:59 18:59 Intake Total 1650 670 Output Total 400 Balance -400 1650 670 Weight 88.904 kg Intake: IV 300 Vancomycin 1,500 mg In 250 Sodium Chloride 0.9% 250 ml @ 125 mls/hr IVPB BID ANGELA Rx#:[id number] ceFAZolin 1,000 mg In 50 Dextrose/Water 1 50ml.bag @ 100 mls/hr IVPB Q8HR ANGELA Rx#:[id number] Oral 1650 370 Output: Urine 400 Other: # Voids 3 - Exam In general patient is alert and oriented 3 in no apparent distress HEENT head normocephalic and atraumatic, there is an area of erythema and swelling and induration in the left temporal area patient still has sutures in the area Neck is supple no JVD no goiter no lymphadenopathy Chest is clear to auscultation no crackles no wheezing Cardiac exam reveals regular heart sounds no gallops no murmurs Abdomen is soft nontender no organomegaly Extremity exam reveals no edema no cyanosis or clubbing - Labs CBC & Chem 7: 11/25/16 07:50 11/25/16 07:50 Labs: Abnormal Lab Results - Last 24 Hours (Table) 11/25/16 11/25/16 Range/Units 07:50 07:50 WBC 0.9 L* (3.8-10.6) k/uL RBC 2.19 L (4.30-5.90) m/uL Hgb 7.9 L (13.0-17.5) gm/dL Hct 23.5 L (39.0-53.0) % MCV 107.5 H (80.0-100.0) fL MCH 36.1 H (25.0-35.0) pg RDW 22.8 H (11.5-15.5) % Plt Count 12 L* (150-450) k/uL Creatinine 0.59 L (0.66-1.25) mg/dL Glucose 126 H (74-99) mg/dL Assessment and Plan Plan: 1. Cellulitis surrounding surgical excision site on the left temporal area. Minimal improvement since yesterday. Consult infectious disease. Add IV vancomycin. Blood culture remains negative. bactroban cream to area ordered 2. Left cervical lymphadenopathy: Still present. Continue to monitor 3. Underlying AML transfusion dependent 4. Pancytopenia secondary to AML status post 2 units of PRBC and 1 unit of platelet transfusion 5. Anemia of chronic disease secondary to AML. Patient did require blood transfusion this admission. 6. 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 Soto
[2016-11-25] MEDS: MUPIROCIN 2% OINT 22 GM TUBE TOPICAL SCH ×2 (15:27→21:48)
--- NOTE | 2016-11-25 18:57 | P.PN ---
Subjective Principal diagnosis: Pain and swelling to the left side of the face Pleasant 66-year-old male well known to the ID service because of his history of myelodysplastic syndrome with excessive blasts diagnosed in 2013. Was evaluated both [facility] is worse locally. Initially refused treatment and was transfusion dependent. However in 2015 he went under the care of Dr. Garcia and agree to treatment with Decagon. The patient relates that he has completed his course of therapy and was doing well. He is still requiring some red cell transfusions. But had some more recent stability. He developed a lesion on the left side of his face. It was positive for squamous cell carcinoma and underwent a excisional removal of the mass. There were started developed increasing amounts of swelling to the site. Redness that traversed around his ear and into his neck with some tender swelling. Because of this he presented to the emergency center with a cellulitis to the site. Antibiotic therapy was begun. Today the patient relates he is feeling slightly better. He is not having high- grade fever chills or rigors or sweats. He did receive platelets and 2 packed red cells at admission. He does feel stronger. Feeling better today Objective - Vital Signs Vital signs: Vital Signs Temp 98.6 F 11/25/16 15:00 Pulse 85 11/25/16 15:00 Resp 16 11/25/16 15:00 BP 132/60 11/25/16 15:00 Pulse Ox 97 11/25/16 15:00 Intake & Output 11/24/16 11/25/16 11/25/16 18:59 06:59 18:59 Intake Total 1650 670 Output Total 400 Balance -400 1650 670 Weight 88.904 kg Intake: IV 300 Vancomycin 1,500 mg In 250 Sodium Chloride 0.9% 250 ml @ 125 mls/hr IVPB BID AGNELA Rx#:[id number] ceFAZolin 1,000 mg In 50 Dextrose/Water 1 50ml.bag @ 100 mls/hr IVPB Q8HR ANGELA Rx#:[id number] Oral 1650 370 Output: Urine 400 Other: # Voids 3 - Exam HEENT: Anicteric conjunctiva are pink and moist nasal mucosa grossly intact without significant lesions, there is no thrush. The left temporal area shows evidence of the recent biopsy site. Suture line is intact. There is some generalized swelling and mild tenderness of the area. The erythema to the areas improved. The erythema that tract posterior regular is resolved. Lymphadenopathy in the region is also resolved. It is no longer tender. Neck: The neck is supple without significant thyromegaly. Lungs: Good bilateral air entry without significant crackles or wheezing. There is no significant bronchial sounds. There is no egophony or dullness. Heart: Regular rate and rhythm with an audible S1-S2, no S3 no S4. There is no significant murmur click or rub, PMI was nondisplaced. Abdomen: Positive bowel sounds soft and nontender without palpable masses or organomegaly. There was no guarding or rebound. Extremities: The upper extremities have excellent pulses they are symmetric, no significant petechiae or telangiectasia. No splinter hemorrhages were noted. The lower extremities are free from significant edema. The peripheral pulses were 2+ and symmetric. Neuro: Awake alert oriented to person place and time. There are no acute new gross focal sensory motor deficits. - Labs CBC & Chem 7: 11/25/16 07:50 11/25/16 07:50 Labs: Abnormal Lab Results - Last 24 Hours (Table) 11/25/16 11/25/16 Range/Units 07:50 07:50 WBC 0.9 L* (3.8-10.6) k/uL RBC 2.19 L (4.30-5.90) m/uL Hgb 7.9 L (13.0-17.5) gm/dL Hct 23.5 L (39.0-53.0) % MCV 107.5 H (80.0-100.0) fL MCH 36.1 H (25.0-35.0) pg RDW 22.8 H (11.5-15.5) % Plt Count 12 L* (150-450) k/uL Creatinine 0.59 L (0.66-1.25) mg/dL Glucose 126 H (74-99) mg/dL Laboratory Results WBC 0.9 k/uL (3.8-10.6) L* 11/25/16 07:50 RBC 2.19 m/uL (4.30-5.90) L 11/25/16 07:50 Hgb 7.9 gm/dL (13.0-17.5) L 11/25/16 07:50 Hct 23.5 % (39.0-53.0) L 11/25/16 07:50 MCV 107.5 fL (80.0-100.0) H 11/25/16 07:50 MCH 36.1 pg (25.0-35.0) H 11/25/16 07:50 MCHC 33.6 g/dL (31.0-37.0) 11/25/16 07:50 RDW 22.8 % (11.5-15.5) H 11/25/16 07:50 Plt Count 12 k/uL (150-450) L* 11/25/16 07:50 Neutrophils % 46 % 11/24/16 08:39 Neutrophils % (Manual) 36.0 % 11/23/16 06:30 Band Neutrophils % 1.0 % 11/23/16 06:30 Lymphocytes % 41 % 11/24/16 08:39 Lymphocytes % (Manual) 55.0 % 11/23/16 06:30 Monocytes % 3 % 11/24/16 08:39 Monocytes % (Manual) 1.0 % 11/23/16 06:30 Eosinophils % 6 % 11/24/16 08:39 Eosinophils % (Manual) 7.0 % 11/23/16 06:30 Basophils % 0 % 11/24/16 08:39 Neutrophils # 0.6 k/uL (1.3-7.7) L 11/24/16 08:39 Neutrophils # (Manual) 0.4 k/uL (1.3-7.7) L 11/23/16 06:30 Lymphocytes # 0.5 k/uL (1.0-4.8) L 11/24/16 08:39 Lymphocytes # (Manual) 0.6 k/uL (1.0-4.8) L 11/23/16 06:30 Monocytes # 0.0 k/uL (0-1.0) 11/24/16 08:39 Monocytes # (Manual) 0.0 k/uL (0-1.0) 11/23/16 06:30 Eosinophils # 0.1 k/uL (0-0.7) 11/24/16 08:39 Eosinophils # (Manual) 0.1 k/uL (0-0.7) 11/23/16 06:30 Basophils # 0.0 k/uL (0-0.2) 11/24/16 08:39 Nucleated RBCs 1 /100 WBC (0-0) H 11/23/16 06:30 Differential Comment 11/25/16 07:50 Manual Slide Review Performed 11/25/16 07:50 Polychromasia Present 11/22/16 06:25 Poikilocytosis Slight 11/23/16 06:30 Poikilocytosis (manual Present 11/25/16 07:50 Anisocytosis Moderate 11/25/16 07:50 Macrocytosis Marked 11/25/16 07:50 Ovalocytes Present 11/22/16 06:25 Sodium 141 mmol/L (137-145) 11/25/16 07:50 Potassium 4.1 mmol/L (3.5-5.1) 11/25/16 07:50 Chloride 105 mmol/L (98-107) 11/25/16 07:50 Carbon Dioxide 29 mmol/L (22-30) 11/25/16 07:50 Anion Gap 7 mmol/L 11/25/16 07:50 BUN 14 mg/dL (9-20) 11/25/16 07:50 Creatinine 0.59 mg/dL (0.66-1.25) L 11/25/16 07:50 Est GFR (MDRD) Af Amer >60 (>60 ml/min/1.73 sqM) 11/25/16 07:50 Est GFR (MDRD) Non-Af >60 (>60 ml/min/1.73 sqM) 11/25/16 07:50 Glucose 126 mg/dL (74-99) H 11/25/16 07:50 Plasma Lactic Acid Jesus 1.3 mmol/L (0.7-2.0) 11/21/16 06:00 Calcium 8.8 mg/dL (8.4-10.2) 11/25/16 07:50 Total Bilirubin 1.0 mg/dL (0.2-1.3) 11/21/16 06:00 AST 35 U/L (17-59) 11/21/16 06:00 ALT 65 U/L (21-72) 11/21/16 06:00 Alkaline Phosphatase 64 U/L (38-126) 11/21/16 06:00 Total Protein 6.3 g/dL (6.3-8.2) 11/21/16 06:00 Albumin 3.4 g/dL (3.5-5.0) L 11/21/16 06:00 Prealbumin 13 mg/dL (18-36) L 11/23/16 06:30 Vancomycin Trough 12.0 ug/mL 11/25/16 07:50 Blood Type A Positive 11/21/16 06:30 Blood Type Recheck No 11/21/16 06:30 Antibody Screen NEGATIVE 11/21/16 06:30 Crossmatch See Detail 11/21/16 06:30 Transfuse Platelets 11/21/2016 11/21/16 06:30 Spec Expiration Date 11/24/2016 - 2339 11/21/16 06:30 Microbiology 11/21/16 06:30 Blood Blood Culture - Preliminary No Growth after 96 hours Assessment and Plan (1) Myelodysplastic disease Status: Acute (2) Anemia Status: Acute (3) Squamous cell carcinoma of face Status: Acute (4) Cellulitis of denominational Narrative/Plan: 66-year-old male who is status post his treatment for his myelodysplastic syndrome with excessive blasts , AML has remained somewhat transfusion dependent as of late. The may of been having some improvements especially since he wasn't requiring some a platelet transfusions. However developed evidence of a mass in the left temporal area. Biopsy and excision reveal evidence of squamous cell cancer. Has now developed a cellulitis that area. He is not responding well to the current antibiotic therapy of cefazolin and vancomycin was added.. So be continued for now until we have some further cultures. Prior day reveals evidence of some contaminant blood cultures but no strong history of MRSA or other resistant gram-positive pathogens. Likely as he is improving will be able to utilize a course of oral antibiotics to finish his course of therapy at discharge which will likely be tomorrow. Local wound care with mupirocin will be requested Pain control appears to be adequate Is being followed by hematology for his transfusion needs. Albumin is low, protein supplements and multivitamin ordered. Status: Acute
[2016-11-25] MEDS: OLANZapine 5 MG TAB PO SCH (21:44)
[2016-11-25] MEDS: DRONABINOL 2.5 MG CAP PO SCH (21:44)
[2016-11-26] MEDS: ceFAZolin 1,000 MG in DEXTROSE/WATER 1 50ML.BAG IVPB SCH ×4 (00:04→23:56)
[2016-11-26] MEDS: MUPIROCIN 2% OINT 22 GM TUBE TOPICAL SCH ×3 (08:10→21:01)
[2016-11-26] MEDS: ATENOLOL 25 MG TAB PO SCH ×2 (08:10→21:02)
[2016-11-26 08:23] LABS: Anisocytosis Moderate; Aty Lym Flag Slight; CH 35.4; CHCM 32.9; HCT 25.3 % (39.0-53.0); HDW 3.25; HGB 8.4 gm/dL (13.0-17.5); MCH 35.7 pg (25.0-35.0); MCHC 33.1 g/dL (31.0-37.0); MCV 108.1 fL (80.0-100.0); Macrocytosis Marked; Mean Platelet Volume 10.6; RBC 2.34 m/uL (4.30-5.90); RDW 22.5 % (11.5-15.5); WBC (Perox) 1.33
[2016-11-26 08:33] LABS: WBC 1.1 k/uL (3.8-10.6)
[2016-11-26 08:41] LABS: ALT 61 U/L (21-72); AST 34 U/L (17-59); Alkaline Phosphatase 52 U/L (38-126); Anion Gap 10 mmol/L; Blood Urea Nitrogen 13 mg/dL (9-20); Calcium 9.4 mg/dL (8.4-10.2); Carbon Dioxide 29 mmol/L (22-30); Chloride 104 mmol/L (98-107); Glucose 122 mg/dL (74-99); Non-African American GFR(MDRD) >60 (>60 ml/min/1.73 sqM); Potassium 3.9 mmol/L (3.5-5.1); Sodium 143 mmol/L (137-145); Total Bilirubin 0.9 mg/dL (0.2-1.3); Total Protein 6.1 g/dL (6.3-8.2)
[2016-11-26] MEDS: VANCOMYCIN 1,500 MG in SODIUM CHLORIDE 0.9% 250 ML IVPB SCH ×2 (08:51→21:07)
[2016-11-26 10:24] LABS: Add Differential Manual Differential; Manual Review Performed
[2016-11-26 10:28] LABS: Nucleated Red Blood Cells 0 /100 WBC (0-0); Total Cells Counted 100
--- NOTE | 2016-11-26 10:51 | P.PN ---
Subjective Patient with cellulitis of the left temporal incision area. Patient is showing some improvement. Currently on vancomycin and Kefzol. Infectious disease following.. Pain is controlled. Denies any chest pain, shortness of breath, nausea or vomiting. Denies a bowel movement changes or urinary symptoms Objective - Vital Signs Vital signs: Vital Signs Temp 97.9 F 11/26/16 07:00 Pulse 68 11/26/16 07:00 Resp 16 11/26/16 07:00 BP 123/61 11/26/16 07:00 Pulse Ox 98 11/26/16 07:00 Intake & Output 11/25/16 11/26/16 11/26/16 18:59 06:59 18:59 Intake Total 670 475 Balance 670 475 Weight 88.904 kg Intake: IV 300 475 Vancomycin 1,500 mg In 250 375 Sodium Chloride 0.9% 250 ml @ 125 mls/hr IVPB BID ANGELA Rx#:[id number] ceFAZolin 1,000 mg In 50 100 Dextrose/Water 1 50ml.bag @ 100 mls/hr IVPB Q8HR ANGELA Rx#:[id number] Oral 370 Other: # Voids 2 - Exam Head normocephalic. Swelling in the left side of the neck has resolved. There is decreased redness around the surgical incision site. There is still some firmness present. No drainage Neck supple Lungs clear to auscultation bilaterally no wheezing or crackles Heart regular rate and rhythm S1-S2, no rub or gallop Abdomen is soft nontender nondistended positive bowel sounds no hepatosplenomegaly Extremities no edema Neuro alert and orientated to 3 - Labs CBC & Chem 7: 11/26/16 07:44 11/26/16 07:44 Labs: Abnormal Lab Results - Last 24 Hours (Table) 11/25/16 11/26/16 11/26/16 Range/Units 07:50 07:44 07:44 WBC 0.9 L* 1.1 L* (3.8-10.6) k/uL RBC 2.19 L 2.34 L (4.30-5.90) m/uL Hgb 7.9 L 8.4 L (13.0-17.5) gm/dL Hct 23.5 L 25.3 L (39.0-53.0) % MCV 107.5 H 108.1 H (80.0-100.0) fL MCH 36.1 H 35.7 H (25.0-35.0) pg RDW 22.8 H 22.5 H (11.5-15.5) % Plt Count 12 L* 9 L* (150-450) k/uL Neutrophils # (Manual) 0.5 L (1.3-7.7) k/uL Lymphocytes # (Manual) 0.5 L (1.0-4.8) k/uL Creatinine 0.58 L (0.66-1.25) mg/dL Glucose 122 H (74-99) mg/dL Total Protein 6.1 L (6.3-8.2) g/dL Albumin 3.3 L (3.5-5.0) g/dL Assessment and Plan Plan: 1. Cellulitis surrounding surgical excision site on the left temporal area. Patient currently on Kefzol and IV vancomycin. Blood cultures remain negative. Patient is followed by infectious disease. There has been some improvement in the redness and swelling. 2. Left cervical lymphadenopathy: Has resolved 3. Underlying AML transfusion dependent 4. Pancytopenia secondary to #3 status post 2 units of PRBC and 1 unit of platelet transfusion . Platelet count of 9 today. We'll transfuse platelets 5. Anemia of chronic disease secondary to AML. Patient did require blood transfusion. 6. 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 Soto
[2016-11-26] MEDS: MULTIVITAMINS, THERA 1 EACH TAB PO SCH (11:35)
--- NOTE | 2016-11-26 13:41 | CDI ---
In responding to this query, please exercise your independent professional judgment. The [facility] Coding Staff and Clinical Documentation Specialists appreciate your assistance in clarifying documentation, maintaining compliance with coding guidelines, accurately documenting patients condition and capturing severity of illness. The fact that a question is asked does not imply that any particular answer is desired or expected. Communication forms are a method of clarifying documentation and are not made part of the Legal Health Record. Thank you in advance for your clarification. Last Revision, August 2015 Ashley Pascual [address] [facility] [place] [address] Documentation Clarification Form Date: 11/26/2016 1:31:00 PM From: Srijimmy Estradazulay Admit Date: 11/21/2016 7:00:00 AM Patient Name: Rob Ferrell Visit Number: [id number] Dr. Yessica Landers and LOBO Gambino A diagnosis of Pancytopenia secondary to AML has been documented in the progress notes. History/Risk factors: Chemo administered from 09/21/2016 to 09/25/2016 per ED and ID history Clinical indicators: Labs: on admission wbc 1.1, rbc 1.82, platelets 8 Treatment: Lab monitoring Transfused 2 units rbc's Transfused 1 unit platelets with another on order Consult: ID In your professional opinion, can you please clarify if these findings signify one of the following conditions? Pancytopenia due to chemotherapy secondary to AML Pancytopenia due to AML only Pancytopenia due to other, please specify Unable to determine Other condition, please specify Please document in your progress notes and discharge summary in order to capture severity of illness and risk of mortality. Include clinical findings that support your diagnosis. FYI: Press F11 to launch patient chart. Place X here if this finding has no clinical significance, is not applicable or if you are not able to provide any additional documentation. MTDD
[2016-11-26] MEDS: DRONABINOL 2.5 MG CAP PO SCH (21:00)
[2016-11-26] MEDS: OLANZapine 5 MG TAB PO SCH (21:01)
[2016-11-26 21:12] VITALS: RESP 16
--- NOTE | 2016-11-26 21:23 | P.PN ---
Subjective Principal diagnosis: Pain and swelling to the left side of the face Pleasant 66-year-old male well known to the ID service because of his history of myelodysplastic syndrome with excessive blasts diagnosed in 2013. Was evaluated both [facility] is worse locally. Initially refused treatment and was transfusion dependent. However in 2015 he went under the care of Dr. Garcia and agree to treatment with Decagon. The patient relates that he has completed his course of therapy and was doing well. He is still requiring some red cell transfusions. But had some more recent stability. He developed a lesion on the left side of his face. It was positive for squamous cell carcinoma and underwent a excisional removal of the mass. There were started developed increasing amounts of swelling to the site. Redness that traversed around his ear and into his neck with some tender swelling. Because of this he presented to the emergency center with a cellulitis to the site. Antibiotic therapy was begun. Today the patient relates he is feeling slightly better. He is not having high- grade fever chills or rigors or sweats. He did receive platelets and 2 packed red cells at admission. He does feel stronger. Feeling better today Objective - Vital Signs Vital signs: Vital Signs Temp 98.2 F 11/26/16 21:11 Pulse 75 11/26/16 21:11 Resp 16 11/26/16 21:11 BP 124/58 11/26/16 21:11 Pulse Ox 97 11/26/16 21:11 Intake & Output 11/26/16 11/26/16 11/27/16 06:59 18:59 06:59 Intake Total 475 950 293 Output Total 400 Balance 475 550 293 Weight 88.904 kg 88.904 kg Intake: IV 475 350 Vancomycin 1,500 mg In 375 250 Sodium Chloride 0.9% 250 ml @ 125 mls/hr IVPB BID ANGELA Rx#:[id number] ceFAZolin 1,000 mg In 100 100 Dextrose/Water 1 50ml.bag @ 100 mls/hr IVPB Q8HR ANGELA Rx#:[id number] Oral 600 Blood Product 0 293 Platelet Irr Pheresis 2 0 293 Acda Unit [id number] Output: Urine 400 Other: # Voids 2 2 - Exam HEENT: Anicteric conjunctiva are pink and moist nasal mucosa grossly intact without significant lesions, there is no thrush. The left temporal area shows evidence of the recent biopsy site. Suture line is intact. There is some generalized swelling and mild tenderness of the area. The erythema to the areas improved. The erythema that tracted posterior to the ear is resolved. Lymphadenopathy in the region is also resolved. It is no longer tender. Neck: The neck is supple without significant thyromegaly. Lungs: Good bilateral air entry without significant crackles or wheezing. There is no significant bronchial sounds. There is no egophony or dullness. Heart: Regular rate and rhythm with an audible S1-S2, no S3 no S4. There is no significant murmur click or rub, PMI was nondisplaced. Abdomen: Positive bowel sounds soft and nontender without palpable masses or organomegaly. There was no guarding or rebound. Extremities: The upper extremities have excellent pulses they are symmetric, no significant petechiae or telangiectasia. No splinter hemorrhages were noted. The lower extremities are free from significant edema. The peripheral pulses were 2+ and symmetric. Neuro: Awake alert oriented to person place and time. There are no acute new gross focal sensory motor deficits. - Labs CBC & Chem 7: 11/26/16 07:44 11/26/16 07:44 Labs: Abnormal Lab Results - Last 24 Hours (Table) 11/26/16 11/26/16 Range/Units 07:44 07:44 WBC 1.1 L* (3.8-10.6) k/uL RBC 2.34 L (4.30-5.90) m/uL Hgb 8.4 L (13.0-17.5) gm/dL Hct 25.3 L (39.0-53.0) % MCV 108.1 H (80.0-100.0) fL MCH 35.7 H (25.0-35.0) pg RDW 22.5 H (11.5-15.5) % Plt Count 9 L* (150-450) k/uL Neutrophils # (Manual) 0.5 L (1.3-7.7) k/uL Lymphocytes # (Manual) 0.5 L (1.0-4.8) k/uL Creatinine 0.58 L (0.66-1.25) mg/dL Glucose 122 H (74-99) mg/dL Total Protein 6.1 L (6.3-8.2) g/dL Albumin 3.3 L (3.5-5.0) g/dL Laboratory Results WBC 1.1 k/uL (3.8-10.6) L* 11/26/16 07:44 RBC 2.34 m/uL (4.30-5.90) L 11/26/16 07:44 Hgb 8.4 gm/dL (13.0-17.5) L 11/26/16 07:44 Hct 25.3 % (39.0-53.0) L 11/26/16 07:44 MCV 108.1 fL (80.0-100.0) H 11/26/16 07:44 MCH 35.7 pg (25.0-35.0) H 11/26/16 07:44 MCHC 33.1 g/dL (31.0-37.0) 11/26/16 07:44 RDW 22.5 % (11.5-15.5) H 11/26/16 07:44 Plt Count 9 k/uL (150-450) L* 11/26/16 07:44 Neutrophils % 46 % 11/24/16 08:39 Neutrophils % (Manual) 43.0 % 11/26/16 07:44 Band Neutrophils % 1.0 % 11/23/16 06:30 Lymphocytes % 41 % 11/24/16 08:39 Lymphocytes % (Manual) 48.0 % 11/26/16 07:44 Monocytes % 3 % 11/24/16 08:39 Monocytes % (Manual) 3.0 % 11/26/16 07:44 Eosinophils % 6 % 11/24/16 08:39 Eosinophils % (Manual) 6.0 % 11/26/16 07:44 Basophils % 0 % 11/24/16 08:39 Neutrophils # 0.6 k/uL (1.3-7.7) L 11/24/16 08:39 Neutrophils # (Manual) 0.5 k/uL (1.3-7.7) L 11/26/16 07:44 Lymphocytes # 0.5 k/uL (1.0-4.8) L 11/24/16 08:39 Lymphocytes # (Manual) 0.5 k/uL (1.0-4.8) L 11/26/16 07:44 Monocytes # 0.0 k/uL (0-1.0) 11/24/16 08:39 Monocytes # (Manual) 0.0 k/uL (0-1.0) 11/26/16 07:44 Eosinophils # 0.1 k/uL (0-0.7) 11/24/16 08:39 Eosinophils # (Manual) 0.1 k/uL (0-0.7) 11/26/16 07:44 Basophils # 0.0 k/uL (0-0.2) 11/24/16 08:39 Nucleated RBCs 0 /100 WBC (0-0) 11/26/16 07:44 Differential Comment Not Reportable 11/26/16 07:44 Manual Slide Review Performed 11/26/16 07:44 Polychromasia Present 11/22/16 06:25 Poikilocytosis Slight 11/23/16 06:30 Poikilocytosis (manual Present 11/26/16 07:44 Anisocytosis Moderate 11/26/16 07:44 Macrocytosis Marked 11/26/16 07:44 Ovalocytes Present 11/22/16 06:25 Sodium 143 mmol/L (137-145) 11/26/16 07:44 Potassium 3.9 mmol/L (3.5-5.1) 11/26/16 07:44 Chloride 104 mmol/L (98-107) 11/26/16 07:44 Carbon Dioxide 29 mmol/L (22-30) 11/26/16 07:44 Anion Gap 10 mmol/L 11/26/16 07:44 BUN 13 mg/dL (9-20) 11/26/16 07:44 Creatinine 0.58 mg/dL (0.66-1.25) L 11/26/16 07:44 Est GFR (MDRD) Af Amer >60 (>60 ml/min/1.73 sqM) 11/26/16 07:44 Est GFR (MDRD) Non-Af >60 (>60 ml/min/1.73 sqM) 11/26/16 07:44 Glucose 122 mg/dL (74-99) H 11/26/16 07:44 Plasma Lactic Acid Jesus 1.3 mmol/L (0.7-2.0) 11/21/16 06:00 Calcium 9.4 mg/dL (8.4-10.2) 11/26/16 07:44 Total Bilirubin 0.9 mg/dL (0.2-1.3) 11/26/16 07:44 AST 34 U/L (17-59) 11/26/16 07:44 ALT 61 U/L (21-72) 11/26/16 07:44 Alkaline Phosphatase 52 U/L (38-126) 11/26/16 07:44 Total Protein 6.1 g/dL (6.3-8.2) L 11/26/16 07:44 Albumin 3.3 g/dL (3.5-5.0) L 11/26/16 07:44 Prealbumin 13 mg/dL (18-36) L 11/23/16 06:30 Vancomycin Trough 12.0 ug/mL 11/25/16 07:50 Blood Type A Positive 11/26/16 12:02 Blood Type Recheck No 11/26/16 12:02 Antibody Screen NEGATIVE 11/26/16 12:02 Crossmatch See Detail 11/21/16 06:30 Transfuse Platelets 11/26/2016 11/26/16 12:02 Spec Expiration Date 11/29/2016 - 230111/26/16 12:02 Microbiology 11/21/16 06:30 Blood Blood Culture - Preliminary No Growth after 120 hours Assessment and Plan (1) Myelodysplastic disease Status: Acute (2) Anemia Status: Acute (3) Squamous cell carcinoma of face Status: Acute (4) Cellulitis of jew Narrative/Plan: 66-year-old male who is status post his treatment for his myelodysplastic syndrome with excessive blasts , AML has remained somewhat transfusion dependent as of late. The may of been having some improvements especially since he wasn't requiring some a platelet transfusions. However developed evidence of a mass in the left temporal area. Biopsy and excision reveal evidence of squamous cell cancer. Has now developed a cellulitis that area. He is not responding well to the current antibiotic therapy of cefazolin and vancomycin was added.. Prior day reveals evidence of some contaminant blood cultures but no strong history of MRSA or other resistant gram-positive pathogens. Likely as he is improving will be able to utilize a course of oral antibiotics to finish his course of therapy at discharge which will likely be tomorrow. Local wound care with mupirocin will be requested Pain control appears to be adequate Is being followed by hematology for his transfusion needs. Albumin is low, protein supplements and multivitamin ordered. We'll discontinue vancomycin given his improvement and negative cultures. Utilization of an oral cephalosporin at discharge will be done and cefuroxime was sent to his pharmacy Status: Acute
[2016-11-27 07:34] LABS: Anion Gap 7 mmol/L; Blood Urea Nitrogen 13 mg/dL (9-20); Carbon Dioxide 30 mmol/L (22-30); Chloride 105 mmol/L (98-107); Glucose 134 mg/dL (74-99); Non-African American GFR(MDRD) >60 (>60 ml/min/1.73 sqM); Potassium 4.1 mmol/L (3.5-5.1); Sodium 142 mmol/L (137-145)
[2016-11-27 07:35] LABS: Calcium 9.3 mg/dL (8.4-10.2)
[2016-11-27 07:49] VITALS: BP 120/60; PULSE 74; TEMP 97.7
[2016-11-27] MEDS: MUPIROCIN 2% OINT 22 GM TUBE TOPICAL SCH (09:08)
[2016-11-27] MEDS: ceFAZolin 1,000 MG in DEXTROSE/WATER 1 50ML.BAG IVPB SCH (09:08)
[2016-11-27] MEDS: ATENOLOL 25 MG TAB PO SCH (09:08)
[2016-11-27] MEDS: MULTIVITAMINS, THERA 1 EACH TAB PO SCH (12:45)
--- NOTE | 2016-11-27 14:35 | P.DS ---
Providers Date of admission: 11/21/16 07:00 Expected date of discharge: 11/27/16 Attending physician: Yessica Landers Consults: 11/23/16 11:09 Consult Physician Routine Consulting Provider: Gerardo Ku Consult Reason/Comments: cellulitis at incision site on the left temporal area Do you want consulting provider notified?: Yes Primary care physician: Felip[facility] Course: Discharge diagnosis 1. Cellulitis surrounding surgical excision site on the left temporal area. Patient currently on Kefzol and IV vancomycin. Blood cultures remain negative. Patient is followed by infectious disease. There has been some improvement in the redness and swelling. Didn't have improved seen by infectious disease the recommending Ceftin at discharge 2. Left cervical lymphadenopathy: Has resolved 3. Underlying AML transfusion dependent 4. Pancytopenia secondary to his AML and chemotherapy #3 status post 2 units of PRBC and 1 unit of platelet transfusion . Platelet count of 9 today. We'll transfuse platelets 5. Anemia of chronic disease secondary to AML. Patient did require blood transfusion. 6. 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 Soto [facility] course This is 66-year-old gentleman with past medical history significant for underlying AML who presented to the emergency room with worsening swelling of the left neck and redness around recent incision in the left frontal area. Patient had the squamous cell carcinoma diagnosed recently. He was evaluated by dermatology and underwent excision with placement of sutures on Wednesday. Patient noted that there is some worsening redness around the area with swelling and some pain. He also noted a lump in his neck. He presented to the emergency room for further evaluation. He was noted to be pancytopenic with critically low platelet and hemoglobin levels. Patient initially started on IV Kefzol. Did not have significant improvement therefore IV vancomycin was added and infectious disease was consulted. Patient did start to show improvement decreased swelling and erythema in the cellulitis area on the left temporal region. Infectious diseases recommending Ceftin at discharge. Patient is medical stable for discharge she did require transfusion on platelets and blood during this admission which is chronic for patient. I sutures will be removed before he is discharged today. He'll follow up with Dr. Saez in 1 week. Patient Condition at Discharge: Stable Plan - Discharge Summary New Discharge Prescriptions: Cefuroxime Axetil [Ceftin] 500 mg PO BID #20 tab Discharge Medication List Atenolol 25 mg PO BID 06/20/14 [History] OLANZapine [ZyPREXA] 5 mg PO HS 11/27/15 [History] Multivitamins, Thera [Multivitamin] 1 tab PO DAILY 08/17/16 [History] Dronabinol [Marinol] 2.5 mg PO HS 11/21/16 [History] Cefuroxime Axetil [Ceftin] 500 mg PO BID #20 tab 11/25/16 [Rx] Follow up Appointment(s)/Referral(s): Felipa Sheets MD [Primary Care Provider] - 1 Week Activity/Diet/Wound Care/Special Instructions: Diet regular Activity as tolerated Discharge Disposition: HOME SELF-CARE
--- NOTE | 2016-11-27 17:00 | P.PN ---
Subjective Principal diagnosis: Pain and swelling to the left side of the face Pleasant 66-year-old male well known to the ID service because of his history of myelodysplastic syndrome with excessive blasts diagnosed in 2013. Was evaluated both [facility] is worse locally. Initially refused treatment and was transfusion dependent. However in 2015 he went under the care of Dr. Garcia and agree to treatment with [place]. The patient relates that he has completed his course of therapy and was doing well. He is still requiring some red cell transfusions. But had some more recent stability. He developed a lesion on the left side of his face. It was positive for squamous cell carcinoma and underwent a excisional removal of the mass. There were started developed increasing amounts of swelling to the site. Redness that traversed around his ear and into his neck with some tender swelling. Because of this he presented to the emergency center with a cellulitis to the site. Antibiotic therapy was begun. Today the patient relates he is feeling slightly better. He is not having high- grade fever chills or rigors or sweats. He had several transfusions since his admission. He does feel stronger. Feeling better today some drainage from the lesion from the left ear occurred overnight. It is not painful. Objective - Vital Signs Vital signs: Vital Signs Temp 97.7 F 11/27/16 07:00 Pulse 74 11/27/16 07:00 Resp 16 11/27/16 07:00 BP 120/60 11/27/16 07:00 Pulse Ox 97 11/27/16 07:00 Intake & Output 11/26/16 11/27/16 11/27/16 18:59 06:59 18:59 Intake Total 950 1108 Output Total 400 400 Balance 550 708 Weight 88.904 kg 88.904 kg Intake: IV 350 225 Vancomycin 1,500 mg In 250 125 Sodium Chloride 0.9% 250 ml @ 125 mls/hr IVPB BID ANGELA Rx#:[id number] ceFAZolin 1,000 mg In 100 100 Dextrose/Water 1 50ml.bag @ 100 mls/hr IVPB Q8HR ANGELA Rx#:[id number] Oral 600 590 Blood Product 0 293 Platelet Irr Pheresis 2 0 293 Acda Unit [id number] Output: Urine 400 400 Other: # Voids 2 2 - Exam HEENT: Anicteric conjunctiva are pink and moist nasal mucosa grossly intact without significant lesions, there is no thrush. The left temporal area shows evidence of the recent biopsy site. Suture line is intact. There is some generalized swelling and mild tenderness of the area. Upon manipulation there is evidence of a small area that is open and a relatively copious amount of bloody material was easily expressed through the incision site. This allows the swelling to completely resolve. It is not very tender. The erythema to the areas improved. The erythema that tracted posterior to the ear is resolved. Lymphadenopathy in the region is also resolved. It is no longer tender. Neck: The neck is supple without significant thyromegaly. Lungs: Good bilateral air entry without significant crackles or wheezing. There is no significant bronchial sounds. There is no egophony or dullness. Heart: Regular rate and rhythm with an audible S1-S2, no S3 no S4. There is no significant murmur click or rub, PMI was nondisplaced. Abdomen: Positive bowel sounds soft and nontender without palpable masses or organomegaly. There was no guarding or rebound. Extremities: The upper extremities have excellent pulses they are symmetric, no significant petechiae or telangiectasia. No splinter hemorrhages were noted. The lower extremities are free from significant edema. The peripheral pulses were 2+ and symmetric. Neuro: Awake alert oriented to person place and time. There are no acute new gross focal sensory motor deficits. - Labs CBC & Chem 7: 11/26/16 07:44 11/27/16 07:01 Labs: Abnormal Lab Results - Last 24 Hours (Table) 11/27/16 Range/Units 07:01 Creatinine 0.65 L (0.66-1.25) mg/dL Glucose 134 H (74-99) mg/dL Laboratory Results WBC 1.1 k/uL (3.8-10.6) L* 11/26/16 07:44 RBC 2.34 m/uL (4.30-5.90) L 11/26/16 07:44 Hgb 8.4 gm/dL (13.0-17.5) L 11/26/16 07:44 Hct 25.3 % (39.0-53.0) L 11/26/16 07:44 MCV 108.1 fL (80.0-100.0) H 11/26/16 07:44 MCH 35.7 pg (25.0-35.0) H 11/26/16 07:44 MCHC 33.1 g/dL (31.0-37.0) 11/26/16 07:44 RDW 22.5 % (11.5-15.5) H 11/26/16 07:44 Plt Count 9 k/uL (150-450) L* 11/26/16 07:44 Neutrophils % 46 % 11/24/16 08:39 Neutrophils % (Manual) 43.0 % 11/26/16 07:44 Band Neutrophils % 1.0 % 11/23/16 06:30 Lymphocytes % 41 % 11/24/16 08:39 Lymphocytes % (Manual) 48.0 % 11/26/16 07:44 Monocytes % 3 % 11/24/16 08:39 Monocytes % (Manual) 3.0 % 11/26/16 07:44 Eosinophils % 6 % 11/24/16 08:39 Eosinophils % (Manual) 6.0 % 11/26/16 07:44 Basophils % 0 % 11/24/16 08:39 Neutrophils # 0.6 k/uL (1.3-7.7) L 11/24/16 08:39 Neutrophils # (Manual) 0.5 k/uL (1.3-7.7) L 11/26/16 07:44 Lymphocytes # 0.5 k/uL (1.0-4.8) L 11/24/16 08:39 Lymphocytes # (Manual) 0.5 k/uL (1.0-4.8) L 11/26/16 07:44 Monocytes # 0.0 k/uL (0-1.0) 11/24/16 08:39 Monocytes # (Manual) 0.0 k/uL (0-1.0) 11/26/16 07:44 Eosinophils # 0.1 k/uL (0-0.7) 11/24/16 08:39 Eosinophils # (Manual) 0.1 k/uL (0-0.7) 11/26/16 07:44 Basophils # 0.0 k/uL (0-0.2) 11/24/16 08:39 Nucleated RBCs 0 /100 WBC (0-0) 11/26/16 07:44 Differential Comment Not Reportable 11/26/16 07:44 Manual Slide Review Performed 11/26/16 07:44 Polychromasia Present 11/22/16 06:25 Poikilocytosis Slight 11/23/16 06:30 Poikilocytosis (manual Present 11/26/16 07:44 Anisocytosis Moderate 11/26/16 07:44 Macrocytosis Marked 11/26/16 07:44 Ovalocytes Present 11/22/16 06:25 Sodium 142 mmol/L (137-145) 11/27/16 07:01 Potassium 4.1 mmol/L (3.5-5.1) 11/27/16 07:01 Chloride 105 mmol/L (98-107) 11/27/16 07:01 Carbon Dioxide 30 mmol/L (22-30) 11/27/16 07:01 Anion Gap 7 mmol/L 11/27/16 07:01 BUN 13 mg/dL (9-20) 11/27/16 07:01 Creatinine 0.65 mg/dL (0.66-1.25) L 11/27/16 07:01 Est GFR (MDRD) Af Amer >60 (>60 ml/min/1.73 sqM) 11/27/16 07:01 Est GFR (MDRD) Non-Af >60 (>60 ml/min/1.73 sqM) 11/27/16 07:01 Glucose 134 mg/dL (74-99) H 11/27/16 07:01 Plasma Lactic Acid Jesus 1.3 mmol/L (0.7-2.0) 11/21/16 06:00 Calcium 9.3 mg/dL (8.4-10.2) 11/27/16 07:01 Total Bilirubin 0.9 mg/dL (0.2-1.3) 11/26/16 07:44 AST 34 U/L (17-59) 11/26/16 07:44 ALT 61 U/L (21-72) 11/26/16 07:44 Alkaline Phosphatase 52 U/L (38-126) 11/26/16 07:44 Total Protein 6.1 g/dL (6.3-8.2) L 11/26/16 07:44 Albumin 3.3 g/dL (3.5-5.0) L 11/26/16 07:44 Prealbumin 13 mg/dL (18-36) L 11/23/16 06:30 Vancomycin Trough 12.0 ug/mL 11/25/16 07:50 Blood Type A Positive 11/26/16 12:02 Blood Type Recheck No 11/26/16 12:02 Antibody Screen NEGATIVE 11/26/16 12:02 Crossmatch See Detail 11/21/16 06:30 Transfuse Platelets 11/26/2016 11/26/16 12:02 Spec Expiration Date 11/29/2016 - 230111/26/16 12:02 Microbiology 11/21/16 06:30 Blood Blood Culture - Final No Growth after 144 hours Assessment and Plan (1) Myelodysplastic disease Status: Acute (2) Anemia Status: Acute (3) Squamous cell carcinoma of face Status: Acute (4) Cellulitis of denominational Narrative/Plan: 66-year-old male who is status post his treatment for his myelodysplastic syndrome with excessive blasts , AML has remained somewhat transfusion dependent as of late. The may of been having some improvements especially since he wasn't requiring some a platelet transfusions. However developed evidence of a mass in the left temporal area. Biopsy and excision reveal evidence of squamous cell cancer. Has now developed a cellulitis that area. He is not responding well to the current antibiotic therapy of cefazolin and vancomycin was added.. Prior day reveals evidence of some contaminant blood cultures but no strong history of MRSA or other resistant gram-positive pathogens. Likely as he is improving will be able to utilize a course of oral antibiotics to finish his course of therapy at discharge which will likely be tomorrow. Local wound care with mupirocin will be requested Pain control appears to be adequate Is being followed by hematology for his transfusion needs. Albumin is low, protein supplements and multivitamin ordered. We'll discontinue vancomycin given his improvement and negative cultures. Utilization of an oral cephalosporin at discharge will be done and cefuroxime was sent to his pharmacy The patient had drainage from the surgical site. It was bloody in nature. Once it drained the swelling that was present resolved. Pressure was kept in place for more than 5 minutes. A light pressure dressing was put in place. He may continue his home. Would not remove the sutures since he's having some drainage. Have the surgeon who did the resection see him early next week for determination for suture removal. Status: Acute
== END 2016-11-27 17:05 | disposition home or self-care (01) | DRG 919 ==
LOC: EC 05:13 → 5MS5E 07:00 → 5ONC 07:41
PROVIDERS: ADMIT Internal Medicine; ATTEND Internal Medicine
PROC: 30233R1 Transfusion of Nonautologous Platelets into Peripheral Vein, Percutaneous Approach (ICD-10-PCS; principal; 2016-11-21)
PROC: 30233N1 Transfusion of Nonautologous Red Blood Cells into Peripheral Vein, Percutaneous Approach (ICD-10-PCS; 2016-11-21)
DX: L76.82 Other postprocedural complications of skin and subcutaneous tissue (principal); D61.810 Antineoplastic chemotherapy induced pancytopenia; C92.00 Acute myeloblastic leukemia, not having achieved remission; D61.818 Other pancytopenia; M41.9 Scoliosis, unspecified; E88.09 Other disorders of plasma-protein metabolism, not elsewhere classified; L03.211 Cellulitis of face; F31.81 Bipolar II disorder; C44.329 Squamous cell carcinoma of skin of other parts of face; I10 Essential (primary) hypertension; E78.5 Hyperlipidemia, unspecified; K21.9 Gastro-esophageal reflux disease without esophagitis; M10.9 Gout, unspecified; T45.1X5A Adverse effect of antineoplastic and immunosuppressive drugs, initial encounter; M19.90 Unspecified osteoarthritis, unspecified site; D46.9 Myelodysplastic syndrome, unspecified; Z80.52 Family history of malignant neoplasm of bladder; Z80.6 Family history of leukemia; Z87.891 Personal history of nicotine dependence; Z79.899 Other long term (current) drug therapy; Z92.21 Personal history of antineoplastic chemotherapy
CPT/HCPCS: 36415; 71020; 80048; 80053; 80202; 83605; 84134; 85025; 86850; 86900; 86901; 86920; 87040; 93005; 96360; 99284

== ENCOUNTER → 2016-12-31 | Outpatient (CLI) | payer MEDICARE, BC ==
--- NOTE | 2016-12-31 11:05 | XR ---
EXAMINATION TYPE: XR Hip Bilateral and AP pelvis DATE OF EXAM: 12/31/2016 10:58 AM COMPARISON: NONE HISTORY: Pain TECHNIQUE: A single AP view of the pelvis is obtained. Two views of the bilateral hip are obtained. FINDINGS: There is no acute fracture/dislocation evident in the pelvis. Arthropathy of the hip joint s noted bilaterally correlate for femoral acetabular impingement. Two views of bilateral hip show no acute fracture or dislocation. No focal lytic or sclerotic lesion seen in the proximal bilateral femur. The overlying soft tissue is unremarkable. IMPRESSION: 1. There is no acute fracture or dislocation in the pelvis or bilateral hip. 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
== END | disposition home or self-care (01) ==
LOC: RADXRMAIN 10:19
PROVIDERS: ATTEND Internal Medicine Hematology & Oncology
DX: M16.0 Bilateral primary osteoarthritis of hip (principal); D46.Z Other myelodysplastic syndromes; D61.818 Other pancytopenia; I10 Essential (primary) hypertension; F32.9 Major depressive disorder, single episode, unspecified
CPT/HCPCS: 73521